=== PATIENT | female | born 1965 | race Caucasian/White ===

== ENCOUNTER 2022-01-21 20:46 | Outpatient (REF) | payer MEDICARE, MEDICAID, SELFPAY ==
[2022-01-23 10:30] LABS: COVID-19 RT-PCR UVMMC Result Negative (Negative)
== END 2022-01-21 20:47 | disposition home or self-care (01) ==
LOC: LBN 20:46
PROVIDERS: Visit Provider Physician Assistant Medical
DX: Z20.822 Contact with and (suspected) exposure to COVID-19 (principal); R09.89 Other specified symptoms and signs involving the circulatory and respiratory systems
CPT/HCPCS: U0003; U0005

== ENCOUNTER 2022-02-11 13:39 | Outpatient (REF) | payer MEDICARE, MEDICAID, SELFPAY | END 2022-02-11 13:40 | disposition home or self-care (01) | LOC: LBN 13:39 | PROVIDERS: Visit Provider Physician Assistant Medical | DX: N89.8 Other specified noninflammatory disorders of vagina (principal); L29.8 Other pruritus | CPT/HCPCS: 87480; 87510; 87660 ==

== ENCOUNTER 2022-10-14 11:41 | Emergency (ER) | payer MEDICARE, MEDICAID, SELFPAY ==
--- NOTE | 2022-10-14 11:30 | RT.EKG_ITS ---
APPROVED REPORT Exam: Resting ECG Reason for Exam: dizzy Patient Location: E HR:71 bpm ECG Measurements Heart Rate [address] 188 P 46 QRSd 99 QRS 5 QT 419 T 61 QTc 454 Conclusion Sinus rhythm...normal P axis, V-rate 60- 99 sinus rhythm, normal axis, normal intervals, non ishcemic
[2022-10-14 11:40] VITALS: BP 170/76; PULSE 77; RESP 12; TEMP 36.5; O2SAT 97
--- NOTE | 2022-10-14 11:45 | DI.CT_ITS ---
Exam(s) CT HEAD WO EXAM: CT HEAD WO CLINICAL HISTORY: syncope. TECHNIQUE: Imaging Protocol: Axial computed tomography images with coronal and sagittal reformatted images were created and reviewed COMPARISON: No exams were available for comparison FINDINGS: There are no skull fractures. There is no fluid in the visualized paranasal sinuses. There is no evidence of intracranial hemorrhage, mass effect, or shift of midline structures. There are no extra-axial fluid collections. The ventricles are not enlarged or shifted and there is no blo od within the ventricular system nor within the basal cisterns. IMPRESSION: No acute intracranial findings on this noninfused CT scan of the brain. RADIATION DOSE DELIVERED: 782.98mGy.cm Total DLP DATA REPOSITORY: All CT scans at this facility are submitted to the National Radiology Data Registry (NRDR) Dose Index Registry (DIR) with the [employer] (ACR). RADIATION OPTIMIZATION: All CT scans at this facility use at least one of these dose optimization te chniques: automated exposure control; mA and/or kV adjustment per patient size (includes targeted exa ms where dose is matched to clinical indication); or iterative reconstruction.
--- NOTE | 2022-10-14 11:45 | DI.RAD_ITS ---
Exam(s) XR CHEST 2V PA LATERAL EXAM: XR CHEST 2V PA LATERAL CLINICAL HISTORY: Syncope, AMS. TECHNIQUE: 2D digital imaging was performed. COMPARISON: CT CT ABDOMEN PELVIS W from 10/14/2022 FINDINGS: 2 views: Heart size is normal. The mediastinum is not widened. Left lung is clear. There is a 1 cm nodular infiltrate in the right upper lobe which requires close follow-up. No pleura l effusions IMPRESSION: 1 cm infiltrate right upper lobe. Close follow-up recommended to rule out malignancy. DATA REPOSITORY: RADIATION DOSE DELIVERED:
--- NOTE | 2022-10-14 11:58 | ED.GENADUL_ITS ---
Discharge Plan Disposition Patient Disposition: Home Condition: Stable Discharge Details Clinical Impression: Syncope, Incidental lung nodule Primary Care Provider: Zara,Local ED Provider: Keshia Lofton Home Meds and New Rx's Prescriptions: No Action gabapentin 300 mg Tablet See Rx Instructions .ROUTE .COMPLEX Rx Instructions: Take 300 mg in AM and HS, 200 mg PO at noon acetaminophen [Tylenol] 325 mg Capsule 650 mg PO TID Discharge Instructions Instructions: Syncope (ED) Additional Instructions: At this time. No evidence for heart problems, no evidence for infection. EKG and troponin are within normal limits. No evidence for urinary tract infection. Head CT is within normal limits. Do have a small hernia, colostomy but no obstruction no signs of infection. You have a small lung nodule noted on the right upper lobe in your lung. Please follow-up with PCP and have a repeat x-ray in approximately 3 to 6 months. Follow up with primary care provider in 3-5 days. Return to ED sooner if any worsening or recurrent syncopal episodes, or concerns. Increase oral fluids. You are placed on a care management list to help establish PCP here in the ED. Medical Decision Making 57-year-old female who presents to the ER via EMS with a chief complaint of syncopal episode. Patient states that she was sitting at the vanity doing her make-up getting ready for work starting her cell phone when she got nauseous and dizzy, she reports syncopal episode and diaphoresis. Work-up ordered including CBC, CMP, serial troponins EKG shows normal sinus rhythm, no STEMI. No old EKG available for review. Liter of normal saline and 4 of Zofran ordered. Urinalysis, UDS ordered. I will add on stool sample for C. difficile due to patient's recent antibiotic use and increased diarrhea and bloating she has been on Augmentin for recent sinus infection. She is also complaining of some abdominal pain right lower quadrant which occurred [address] head chest x-ray and CT abdomen pelvis ordered. Vitals are stable at this time. Differential diagnosis includes not limited to CAD, cardiac event, dehydration, electrolyte imbalance, seizure, vasovagal response, infection this untreated. 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 CBC shows no leukocytosis, largely within normal limits sodium potassium within normal limits, glucose is 108 calcium slightly elevated 10.5, magnesium 1.9 urinalysis is negative for nitrates leukocytes no evidence for UTI, however there is squamous contamination and culture is not indicated at this time. Blood, she does have some calcium oxalate in her crystals in her urine, occult blood for stool is negative. UDS is pending at this time, C. difficile is pending. C. difficile negative, Hemoccult stool negative. Repeat troponin within normal limits. Vital signs are stable. I did discuss the work-up with patient and strict return instructions, patient was placed on care management list for PCP establishment. I did discuss with her to return if any recurrent syncope episodes, did instruct her to have somebody stay with her for the next 12 to 24 hours for observation. She verbalized understanding is remained alert and oriented x4 throughout her entire stay has ambulated to the bathroom without difficulty. CT head abdomen pelvis largely within normal limits there is a fat-containing hernia noted around the colostomy on her left lower quadrant. No obstruction no free air. Please see official report. 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 I did recommend close follow-up with PCP and reimaging in 3 to 6 months. She verbalizes understanding. Patient reports that she is not established through PCP here she usually goes to [facility] [place]. This text was generated using [employer] dictation system, please disregard any oddities of phrase or misspellings. Lab Data Lab results reviewed: Yes I reviewed the patient's lab results. Labs: 10/14/22 13:00 Stool Stool Occult Blood ([facility]) - Final Laboratory Tests Range/Units 10/14/22 10/14/22 10/14/22 12:00 12:00 12:00 WBC (4.4-10.8) 10^3/uL 6.35 RBC (3.93-5.22) 10^6/uL 4.61 Hgb (11.2-15.7) g/dL 13.5 Hct (36.0-46.0) % 40.4 MCV (80-95) fL 88 MCH (27.0-33.0) pg 29.3 MCHC (32.0-36.0) % 33.4 RDW (11.7-14.6) % 12.1 Plt Count (130-400) 10^3/uL 343 MPV (8.0-11.0) fL 8.7 Immature Gran % 0.5 Neutrophils % 51.9 Lymphocytes % 36.5 Monocytes % 6.9 Eosinophils % 2.8 Basophils % 1.4 Nucleated RBC % (0.0-0.3) % 0.0 Absolute Neutrophils (1.2-6.7) 10^3/uL 3.29 Absolute Lymphocytes (1.2-3.4) 10^3/uL 2.32 Absolute Monocytes (0.1-0.8) 10^3/uL 0.44 Absolute Eosinophils (0.0-0.7) 10^3/uL 0.18 Absolute Basophils (0.0-0.2) 10^3/uL 0.09 Sodium (136-145) mmol/L 139 Potassium (3.5-5.1) mmol/L 3.6 Chloride (98-107) mmol/L 104 Carbon Dioxide (21.0-32.0) mmol/L 24.8 Anion Gap (3-11) mmol/L 10.2 BUN (7-18) mg/dL 10 Creatinine (0.55-1.02) mg/dL 0.7 Est GFR (CKD-EPI 2020) (mL/min/1.73m2) 100.19 Glucose (74-106) mg/dL 108 H Calcium (8.5-10.1) mg/dL 10.5 H Magnesium (1.8-2.4) mg/dL 1.9 Total Bilirubin (0.2-1.0) mg/dL 0.5 AST (15-37) U/L 36 ALT (14-59) U/L 55 Alkaline Phosphatase (46-116) U/L 97 Troponin I (<or=60) ng/L < 50 Total Protein (6.4-8.2) g/dL 8.2 Albumin (3.4-5.0) g/dL 4.5 Urine Color (Yellow) Urine Clarity (Clear) Urine pH (5-8) Ur Specific [place] (1.005-1.025) Urine Protein (Negative) mg/dL Urine Ketones (Negative) mg/dL Urine Blood (Negative) Urine Nitrite (Negative) Urine Bilirubin (Negative) Urine Urobilinogen (Up TO 0.2) EU/dL Ur Leukocyte Esterase (Negative) Urine RBC (0-2) HPF Urine WBC (0-5) HPF Ur Epithelial Cells (Negative) HPF Urine Crystals (Negative) HPF Urine Bacteria (Negative) HPF Urine Casts (Negative) LPF Urine Mucus (Negative) Ur Culture Indicated? Urine Glucose (Negative) mg/dL Stl C.difficile Tox PCR (Negative) Urine Opiates Screen (Negative) Urine Methadone Screen (Negative) Ur Barbiturates Screen (Negative) Ur Tricyclics Screen (Negative) Ur Amphetamines Screen (Negative) U Benzodiazepines Scrn (Negative) Urine Cocaine Screen (Negative) Ur THC Screen (Negative) Range/Units 10/14/22 10/14/22 10/14/22 12:32 12:32 13:00 WBC (4.4-10.8) 10^3/uL RBC (3.93-5.22) 10^6/uL Hgb (11.2-15.7) g/dL Hct (36.0-46.0) % MCV (80-95) fL MCH (27.0-33.0) pg MCHC (32.0-36.0) % RDW (11.7-14.6) % Plt Count (130-400) 10^3/uL MPV (8.0-11.0) fL Immature Gran % Neutrophils % Lymphocytes % Monocytes % Eosinophils % Basophils % Nucleated RBC % (0.0-0.3) % Absolute Neutrophils (1.2-6.7) 10^3/uL Absolute Lymphocytes (1.2-3.4) 10^3/uL Absolute Monocytes (0.1-0.8) 10^3/uL Absolute Eosinophils (0.0-0.7) 10^3/uL Absolute Basophils (0.0-0.2) 10^3/uL Sodium (136-145) mmol/L Potassium (3.5-5.1) mmol/L Chloride (98-107) mmol/L Carbon Dioxide (21.0-32.0) mmol/L Anion Gap (3-11) mmol/L BUN (7-18) mg/dL Creatinine (0.55-1.02) mg/dL Est GFR (CKD-EPI 2020) (mL/min/1.73m2) Glucose (74-106) mg/dL Calcium (8.5-10.1) mg/dL Magnesium (1.8-2.4) mg/dL Total Bilirubin (0.2-1.0) mg/dL AST (15-37) U/L ALT (14-59) U/L Alkaline Phosphatase (46-116) U/L Troponin I (<or=60) ng/L Total Protein (6.4-8.2) g/dL Albumin (3.4-5.0) g/dL Urine Color (Yellow) Yellow Urine Clarity (Clear) Sl Cloudy Urine pH (5-8) 5.5 Ur Specific [place] (1.005-1.025) 1.020 Urine Protein (Negative) mg/dL Trace H Urine Ketones (Negative) mg/dL Negative Urine Blood (Negative) Negative Urine Nitrite (Negative) Negative Urine Bilirubin (Negative) Negative Urine Urobilinogen (Up TO 0.2) EU/dL 0.2 Ur Leukocyte Esterase (Negative) Negative Urine RBC (0-2) HPF 0-2 Urine WBC (0-5) HPF 0-2 Ur Epithelial Cells (Negative) HPF Many Urine Crystals (Negative) HPF Mod Calcium Oxalate Urine Bacteria (Negative) HPF Few Urine Casts (Negative) LPF Negative Urine Mucus (Negative) Trace Ur Culture Indicated? No/Sq. Contamination Urine Glucose (Negative) mg/dL Negative Stl C.difficile Tox PCR (Negative) Negative Urine Opiates Screen (Negative) Negative Urine Methadone Screen (Negative) Negative Ur Barbiturates Screen (Negative) Negative Ur Tricyclics Screen (Negative) Negative Ur Amphetamines Screen (Negative) Negative U Benzodiazepines Scrn (Negative) Negative Urine Cocaine Screen (Negative) Negative Ur THC Screen (Negative) Positive A Range/Units 10/14/22 15:02 WBC (4.4-10.8) 10^3/uL RBC (3.93-5.22) 10^6/uL Hgb (11.2-15.7) g/dL Hct (36.0-46.0) % MCV (80-95) fL MCH (27.0-33.0) pg MCHC (32.0-36.0) % RDW (11.7-14.6) % Plt Count (130-400) 10^3/uL MPV (8.0-11.0) fL Immature Gran % Neutrophils % Lymphocytes % Monocytes % Eosinophils % Basophils % Nucleated RBC % (0.0-0.3) % Absolute Neutrophils (1.2-6.7) 10^3/uL Absolute Lymphocytes (1.2-3.4) 10^3/uL Absolute Monocytes (0.1-0.8) 10^3/uL Absolute Eosinophils (0.0-0.7) 10^3/uL Absolute Basophils (0.0-0.2) 10^3/uL Sodium (136-145) mmol/L Potassium (3.5-5.1) mmol/L Chloride (98-107) mmol/L Carbon Dioxide (21.0-32.0) mmol/L Anion Gap (3-11) mmol/L BUN (7-18) mg/dL Creatinine (0.55-1.02) mg/dL Est GFR (CKD-EPI 2020) (mL/min/1.73m2) Glucose (74-106) mg/dL Calcium (8.5-10.1) mg/dL Magnesium (1.8-2.4) mg/dL Total Bilirubin (0.2-1.0) mg/dL AST (15-37) U/L ALT (14-59) U/L Alkaline Phosphatase (46-116) U/L Troponin I (<or=60) ng/L < 50 Total Protein (6.4-8.2) g/dL Albumin (3.4-5.0) g/dL Urine Color (Yellow) Urine Clarity (Clear) Urine pH (5-8) Ur Specific [place] (1.005-1.025) Urine Protein (Negative) mg/dL Urine Ketones (Negative) mg/dL Urine Blood (Negative) Urine Nitrite (Negative) Urine Bilirubin (Negative) Urine Urobilinogen (Up TO 0.2) EU/dL Ur Leukocyte Esterase (Negative) Urine RBC (0-2) HPF Urine WBC (0-5) HPF Ur Epithelial Cells (Negative) HPF Urine Crystals (Negative) HPF Urine Bacteria (Negative) HPF Urine Casts (Negative) LPF Urine Mucus (Negative) Ur Culture Indicated? Urine Glucose (Negative) mg/dL Stl C.difficile Tox PCR (Negative) Urine Opiates Screen (Negative) Urine Methadone Screen (Negative) Ur Barbiturates Screen (Negative) Ur Tricyclics Screen (Negative) Ur Amphetamines Screen (Negative) U Benzodiazepines Scrn (Negative) Urine Cocaine Screen (Negative) Ur THC Screen (Negative) HPI General Mode of arrival: EMS . Date/Time Provider Initiated Documentation: 10/14/22 11:58 . Limitations to Documentation: altered mental status . Information obtained by: patient, EMS and RN notes reviewed . HPI Narrative: 57-year-old female who presents to the ER via EMS with a chief complaint of syncopal episode. Patient states that she was sitting at the vanity doing her make-up getting ready for work starting her cell phone when she got nauseous and dizzy, she reports syncopal episode and diaphoresis. She denies any chest pain she does have ulcerative colitis and has diarrhea daily. She denies any fever or chills. She reports feeling crappy prior to the episode. This is never happened to her before. Past medical history includes ulcerative colitis, anemia, cholecystectomy, she does have colostomy on the left lower quadrant. Related Data Home Medications Medication Instructions Recorded Confirmed acetaminophen 325 mg capsule 650 mg PO TID 10/14/22 10/14/22 (Tylenol) gabapentin 300 mg tablet See Rx Instructions .Route .COMPLEX 10/14/22 10/14/22 Allergies Allergy/AdvReac Type Severity Reaction Status Date / Time ciprofloxacin Allergy Severe Anaphylaxis Unverified 10/14/22 11:49 General Stated Complaint: [id number] DARION: 3 Review of Systems All systems reviewed & are unremarkable except as noted in HPI and below Constitutional Constitutional: Reports as per HPI and Reports headache(s) ENT Ears, Nose, Mouth, and Throat: Reports headache(s) Cardiovascular Cardiovascular: Denies chest pain and Reports syncope Respiratory Respiratory: Denies cough and Denies wheezing Gastrointestinal Gastrointestinal: Reports abdominal pain, Denies bloating, Reports diarrhea, Denies vomiting and Denies hematemesis Genitourinary Genitourinary: Denies difficulty voiding and Denies dysuria Neurologic Neurologic: Reports syncope and Reports headache(s) Allergic/Immunologic Allergic/Immunologic: Denies wheezing PFSH All Active Problems (Updated 10/14/22 @ 14:55 by Keshia Lofton NP) Syncope (Chronic) Incidental lung nodule (Acute) Social History Smoking/Tobacco Use Status: Never Smoking risk assessment performed?: Yes Alcohol Intake: never Drug use: Daily Substance use type: marijuana Do you feel safe at home: Yes Do you feel safe in your relationship?: Yes Exam Narrative Exam Narrative: Constitutional: Alert and oriented x3. Appears stated age. Obese body habitus. Head: Normocephalic, no trauma. Eyes: Pupils PERRL, Red reflex noted, EOM's intact. Eyelids symmetrical without lesions, discharge, or swelling. ENT: Bilateral TM's WNL, External ear normal to inspection, no mastoid TTP, swelling, or erythema, Nasal turbinates WNL, no nasal discharge. Normal dentition, Posterior pharynx WNL, no exudate. Chest: RRR, Normal S1, S2, distal pulses intact. Resp: Lungs clear to auscultation bilaterally, no wheezes, rales, or rhonchi. Abdomen: Soft, non-distended, Normoactive bowel sounds all 4 quads. Tenderness with palpation right lower quadrant, she does have a colostomy bag with brown liquid stool noted on the left lower quadrant. No surrounding induration or swelling. Musculoskeletal: Normal gait, 5/5 strength to all four extremities. Skin: No suspicious rashes or lesions. Capillary refill less than 2 sec. slightly pale Neurologic: Cranial nerves II-XII intact. Alert and oriented x 3. Motor: No deficits noted. Sensory: Intact bilaterally all 4 extremities. Reflexes: DTR's intact bilaterally.. Hematologic/Lymphatic: No ecchymosis, no lymphadenopathy. Course Vital Signs Vital signs: Vital Signs Temperature 36.5 C 10/14/22 11:40 Pulse 77 10/14/22 11:40 Respiratory Rate 12 10/14/22 11:40 Blood Pressure 170/76 H 10/14/22 11:40 Pulse Oximetry 97 10/14/22 11:40 Temperature 36.5 C 10/14/22 11:40 Temperature Source Temporal Artery Scan 10/14/22 11:40 Pulse 77 10/14/22 11:40 Respiratory Rate 12 10/14/22 11:40 Respiratory Effort 10/14/22 11:45 Blood Pressure 170/76 H 10/14/22 11:40 Blood Pressure Position Sitting 10/14/22 11:40 Pulse Oximetry 97 10/14/22 11:40 Oxygen Delivery Method Room Air 10/14/22 11:40 Oxygen Flow Rate 0 10/14/22 11:40 Pain Level 0 10/14/22 11:40
--- NOTE | 2022-10-14 12:15 | DI.CT_ITS ---
Exam(s) CT ABDOMEN PELVIS W EXAM: CT ABDOMEN PELVIS W CLINICAL HISTORY: RLQ abd pain, Hx ulcerative colitis. TECHNIQUE: Imaging Protocol: Axial computed tomography images with coronal and sagittal reformatted images were created and reviewed CONTRAST MATERIAL: Intravenous: Omnipaque-350 100cc Oral: None COMPARISON: No exams were available for comparison FINDINGS: VISUALIZED LUNG BASES: No nodules nor pleural effusions evident. ABDOMEN: There is no ascites. There is an anterior abdominal wall left-sided colostomy site. There is a fat containing hernia at t he colostomy site but no bowel obstruction. No free air. No abscess. LIVER: There are no focal hepatic lesions evident . GALLBLADDER/BILIARY: No gallbladder surgically absent. CBD diameter is prominent, measuring 1.2 cm. Probably related to post cholecystectomy status. There are no radiopaque calculi seen in the lower CBD. No pancreatic head mass evident. PANCREAS: No evidence of pancreatic mass nor dilatation of the pancreatic duct. SPLEEN: Spleen is not enlarged. No obvious intrasplenic lesions. Splenic and portal veins are paten t. ADRENALS: There are no significant adrenal masses. KIDNEYS:No cysts evident. No solid renal masses. No calculi nor hydronephrosis.. ABDOMINAL AORTA: Abdominal aorta is not enlarged. LYMPH NODES:There is no retroperitoneal nor paraaortic adenopathy. ABDOMINAL WALL: Left-sided ostomy with hernia at this level evident. No inguinal hernias. GI: There is no evidence of bowel obstruction, free air, nor abscess. PELVIS: GI: No evidence of appendicitis.No evidence of sigmoid diverticulitis. LYMPH NODES: There is no intrapelvic nor inguinal adenopathy. REPRODUCTIVE: Upper vaginal pessary in place. Uterus appears unremarkable. No abnormal adnexal mass es nor free fluid in the pelvis. URINARY BLADDER: No calculi nor obvious masses evident OSSEOUS: No significant osseous lesions. IMPRESSION: 1. There is a left-sided colostomy with hernia at this level which contains predominantly fat. Herni a sac at this level measures 10 cm craniocaudal by 5 0.8 cm AP by 9 cm wide. 2. No evidence of bowel obstruction, free air, nor abscess. There is no ascites. 3. Vaginal pessary is noted in place. 4. Gallbladder surgically absent. CBD diameter is enlarged but this is probably related to post chol ecystectomy status. There is mild dilatation of intrahepatic ducts in the left hepatic lobe. RADIATION DOSE DELIVERED: 1,382.42mGy.cm Total DLP DATA REPOSITORY: All CT scans at this facility are submitted to the National Radiology Data Registry (NRDR) Dose Index Registry (DIR) with the [employer] (ACR). RADIATION OPTIMIZATION: All CT scans at this facility use at least one of these dose optimization te chniques: automated exposure control; mA and/or kV adjustment per patient size (includes targeted exa ms where dose is matched to clinical indication); or iterative reconstruction.
[2022-10-14 12:21] LABS: Abs Immature Grans 0.03 10^3/uL (0.0-0.06); Absolute Basophil Count 0.09 10^3/uL (0.0-0.2); Absolute Eosinophil Count 0.18 10^3/uL (0.0-0.7); Absolute Lymphocyte Count 2.32 10^3/uL (1.2-3.4); Absolute Monocyte Count 0.44 10^3/uL (0.1-0.8); Absolute Neutrophil Count 3.29 10^3/uL (1.2-6.7); Basophils % 1.4; Eosinophils % 2.8; HCT 40.4 % (36.0-46.0); HGB 13.5 g/dL (11.2-15.7); Immature Grans % 0.5; Lymphocytes % 36.5; MCH 29.3 pg (27.0-33.0); MCHC 33.4 % (32.0-36.0); MCV 88 fL (80-95); MPV 8.7 fL (8.0-11.0); Monocytes % 6.9; Neutrophils % 51.9; Platelet Count 343 10^3/uL (130-400); RBC 4.61 10^6/uL (3.93-5.22); RDW 12.1 % (11.7-14.6); RDW-SD 39.1 fL; WBC 6.35 10^3/uL (4.4-10.8)
[2022-10-14 12:35] LABS: ALT 55 U/L (14-59); AST 36 U/L (15-37); Albumin 4.5 g/dL (3.4-5.0); Alkaline Phosphatase 97 U/L (46-116); Anion Gap 10.2 mmol/L (3-11); BUN 10 mg/dL (7-18); Bilirubin, Total 0.5 mg/dL (0.2-1.0); CO2 24.8 mmol/L (21.0-32.0); CREATININE 0.7 mg/dL (0.55-1.02); Calcium 10.5 mg/dL (8.5-10.1); Chloride 104 mmol/L (98-107); Estimated GFR 100.19 (mL/min/1.73m2); Glucose 108 mg/dL (74-106); Magnesium 1.9 mg/dL (1.8-2.4); Potassium 3.6 mmol/L (3.5-5.1); Sodium 139 mmol/L (136-145); Total Protein 8.2 g/dL (6.4-8.2)
[2022-10-14] MEDS: Ondansetron 4 MG/2 ML VIAL IVP (12:48)
[2022-10-14] MEDS: Normal Saline Flush 10 ML SYR IVP ×2 (12:48→13:37)
[2022-10-14] MEDS: Normal Saline 1,000 ML 1000 ML IV (12:48)
--- NOTE | 2022-10-14 12:50 | NUR.NOTE ---
Nursing Note: test was a faint positive line, I told Keshia, pt is 5 years post menopausal.
[2022-10-14 13:03] LABS: Bilirubin Negative (Negative); Blood Negative (Negative); Clarity Sl Cloudy (Clear); Glucose Negative (Negative); Ketones Negative (Negative); Leukocyte Esterase Negative (Negative); Nitrite Negative (Negative); Urobilinogen 0.2 EU/dL (Up TO 0.2); pH 5.5 (5-8)
[2022-10-14 13:16] LABS: Bacteria Few HPF (Negative); C & S Indicated? No/Sq. Contamination; Casts Negative LPF (Negative); Crystals Mod Calcium Oxalate HPF (Negative); Epithelial Cells Many HPF (Negative); Mucus Trace (Negative); RBC 0-2 HPF (0-2); WBC 0-2 HPF (0-5)
[2022-10-14 13:21] LABS: *AMPHETAMINES SCREEN URINE Negative (Negative); *BARBITURATES SCREEN URINE Negative (Negative); *BENZODIAZEPINES SCREEN URINE Negative (Negative); Cannabinoids THC Positive (Negative); Cocaine Screen,Urine Negative (Negative); METHADONE URINE SCREEN Negative (Negative); OPIATES URINE SCREEN Negative (Negative)
[2022-10-14 13:28] LABS: Tricyclic Antidepressants Negative (Negative)
[2022-10-14] MEDS: Omnipaque 350 MG/ML 500 ML BTL-Imaging package IJ (13:38)
[2022-10-14] MEDS: Normal Saline - Diluent 50 ML VIAL IV (13:39)
[2022-10-14 14:00] LABS: C Diff PCR Negative (Negative)
[2022-10-14 14:18] LABS: Troponin I < 50 ng/L (<or=60)
[2022-10-14 15:30] LABS: Troponin I < 50 ng/L (<or=60)
[2022-10-14 16:15] VITALS: BP 150/48; PULSE 68; TEMP 36.5; O2SAT 96
--- NOTE | 2022-10-14 22:18 | NUR.NOTE ---
Referral to Care Management to establish pcp routinely.Nursing Note:
[2022-10-15 11:15] LABS: Campylobacter PCR Negative (Negative); Salmonella PCR Negative (Negative); Shiga Toxin PCR Negative (Negative); Shigella/Enteroinvasive Ecoli Negative (Negative)
== END 2022-10-14 16:04 | disposition home or self-care (01) ==
PROVIDERS: Emergency Provider Registered Nurse Emergency
DX: R55 Syncope and collapse (principal); R91.1 Solitary pulmonary nodule; R11.0 Nausea; R42 Dizziness and giddiness; R10.31 Right lower quadrant pain; R61 Generalized hyperhidrosis; E83.52 Hypercalcemia; K46.9 Unspecified abdominal hernia without obstruction or gangrene; E66.9 Obesity, unspecified; Z93.3 Colostomy status
CPT/HCPCS: 80053; 80307; 81025; 87493; 87505; 93005; 96361; 96374; 99285; 70450; 71046; 74177; 81003; 81015; 82270; 83735; 84484; 85025; 93010; J2405

== ENCOUNTER 2022-12-13 17:11 | Outpatient (REF) | payer MEDICARE, MEDICAID, SELFPAY | END 2022-12-13 17:12 | disposition home or self-care (01) | LOC: LBN 17:11 | PROVIDERS: Visit Provider Nurse Practitioner Family | DX: R35.0 Frequency of micturition (principal) | CPT/HCPCS: 87086; 87480; 87510; 87660 ==

== ENCOUNTER 2023-02-03 11:33 | Outpatient (CLI) | payer MEDICARE, MEDICAID, SELFPAY ==
--- NOTE | 2023-02-03 11:30 | DI.RAD_ITS ---
Exam(s) XR CERVICAL SPINE COMP 4-5V EXAM: XR CERVICAL SPINE COMP 4-5V CLINICAL HISTORY: NECK PAIN, M54.2, X 1 WK WITH MUSCLE TENSION, NO TRAUMA. TECHNIQUE: 2D digital imaging was performed. COMPARISON: No exams were available for comparison FINDINGS: Six views There is mild reversal of the normal curvature. No evidence of fracture or listhesis nor offset of t he spinal laminar line. There is moderate disc space narrowing at C3-4 and C5-6 levels. Normal disc height at the other levels including C6-7. There are mild degenerative changes in the facet joints. There are Luschka joint osteophytes evident at C5-6 level bilaterally. No cervical ribs. No significant osseous lesions. IMPRESSION: There is degenerative disc disease at C5-6 and C3-4 levels. If clinically indicated follow-up MRI ca n be performed. DATA REPOSITORY: RADIATION DOSE DELIVERED:
== END 2023-02-03 11:53 ==
LOC: DI 11:36
PROVIDERS: Visit Provider Physician Assistant Medical
DX: M50.322 Other cervical disc degeneration at C5-C6 level
CPT/HCPCS: 72050

== ENCOUNTER 2023-06-20 11:55 | Outpatient (REF) | payer MEDICARE, MEDICAID, SELFPAY ==
[2023-06-20 15:27] LABS: Abs Immature Grans 0.01 10^3/uL (0.0-0.06); Absolute Basophil Count 0.09 10^3/uL (0.0-0.2); Absolute Eosinophil Count 0.17 10^3/uL (0.0-0.7); Absolute Lymphocyte Count 3.16 10^3/uL (1.2-3.4); Absolute Monocyte Count 0.41 10^3/uL (0.1-0.8); Basophils % 1.5; Eosinophils % 2.8; HCT 38.3 % (36.0-46.0); Immature Grans % 0.2; Lymphocytes % 52.3; MCH 29.9 pg (27.0-33.0); MCHC 33.9 % (32.0-36.0); MCV 88 fL (80-95); MPV 9.2 fL (8.0-11.0); Monocytes % 6.8; Neutrophils % 36.4; Platelet Count 363 10^3/uL (130-400); RBC 4.35 10^6/uL (3.93-5.22); RDW-SD 41.6 fL; WBC 6.04 10^3/uL (4.4-10.8)
[2023-06-20 16:13] LABS: Iron 57 ug/dL (50-170); Total Iron Binding Capacity 419 ug/dL (250-450); Transferrin Sat 14 % (15-50)
[2023-06-20 16:22] LABS: ALT 59 U/L (14-59); AST 33 U/L (15-37); Albumin 4.1 g/dL (3.4-5.0); Alkaline Phosphatase 75 U/L (46-116); Anion Gap 11.7 mmol/L (3-11); BUN 11 mg/dL (7-18); Bilirubin, Total 0.5 mg/dL (0.2-1.0); CO2 24.3 mmol/L (21.0-32.0); CREATININE 0.7 mg/dL (0.55-1.02); Calcium 10.4 mg/dL (8.5-10.1); Calculated LDL 94 mg/dL (<100); Chloride 102 mmol/L (98-107); Cholesterol 196 mg/dL (<200); Estimated GFR 100.19 (mL/min/1.73m2); Glucose 97 mg/dL (74-106); HDL Cholesterol 55 mg/dL (40-60); Potassium 3.8 mmol/L (3.5-5.1); Sodium 138 mmol/L (136-145); TSH (W/Ref FT4) 0.88 uIU/mL (0.36-3.74); Total Protein 7.3 g/dL (6.4-8.2); Triglyceride 235 mg/dL (<150); Vitamin B12 789 pg/mL (193-986)
== END 2023-06-20 11:56 | disposition home or self-care (01) ==
LOC: NCHCN 11:55
PROVIDERS: PCP Nurse Practitioner Family; Visit Provider Nurse Practitioner Family
DX: D64.9 Anemia, unspecified (principal); I10 Essential (primary) hypertension; R73.03 Prediabetes; F41.8 Other specified anxiety disorders; K51.90 Ulcerative colitis, unspecified, without complications; E78.5 Hyperlipidemia, unspecified; Z86.39 Personal history of other endocrine, nutritional and metabolic disease
CPT/HCPCS: 80053; 80061; 82607; 83540; 83550; 84443; 85025

== ENCOUNTER → 2023-06-30 02:12 | Outpatient (CLI) | payer MEDICARE, MEDICAID, SELFPAY ==
--- NOTE | 2023-06-30 09:57 | DI.RAD_ITS ---
Exam(s) XR CHEST 2V PA LATERAL EXAM: XR CHEST 2V PA LATERAL CLINICAL HISTORY: LUNG NODULE R91.8. TECHNIQUE: 2D digital imaging was performed. COMPARISON: CR XR CHEST 2V PA LATERAL from 10/14/2022 FINDINGS: 2 views: Heart size is normal. The mediastinum is not widened. Left lung is clear. Increased markings in the right upper lobe again noted without significant dolan e from previous. Also increased markings in the right lung base, slightly more so than previous. Th ere are no pleural effusions. IMPRESSION: Persistent right upper lobe findings. Also mildly increased right lung base findings. Recommend fol low-up CT scan of the chest. DATA REPOSITORY: RADIATION DOSE DELIVERED:
== END ==
PROVIDERS: PCP Nurse Practitioner Family; Visit Provider Nurse Practitioner Family
DX: R91.8 Other nonspecific abnormal finding of lung field (principal)
CPT/HCPCS: 71046

== ENCOUNTER 2023-10-24 17:25 | Emergency (ER) | payer MEDICARE, MEDICAID, SELFPAY ==
[2023-10-24] VITALS (10 sets, daily range): BP systolic 164–187; BP diastolic 63–92; PULSE 81–115; RESP 11–20; TEMP 36.6; O2SAT 94–98
--- NOTE | 2023-10-24 17:33 | ED.GENADUL_ITS ---
HPI General Date/Time Provider Initiated Documentation: 10/24/23 17:32 . HPI Narrative: MDM This is an overall well-appearing normothermic and initially tachycardic 58-year-old female with history most consistent with possible syncopal episode last week. Given no postictal phase and no loss of bowel or bladder control nor any prior history of seizure I did not feel that the patient's presentation represented a seizure. She did have a CT scan performed approximately 1 year ago which had no acute abnormalities. I do not feel that she requires an MRI as she has no focal weakness to suggest CVA. No ongoing concerns for convulsions so do not feel that the patient's presentation represents status epilepticus so I do not feel that the patient requires an EEG. No fevers to suggest meningitis I do not feel that she requires an LP. She does not appear volume overloaded to suggest acute CHF. No black nor bloody stools to suggest GI bleed. Will assess an ECG to assess for any dysrhythmias, ischemia and blocks. She is nonalcoholic though she is mildly hypertensive. She denies history of routine tobacco and ingestions so I do not feel that her presentation represents a toxidrome. No pain out of proportion to suggest necrotizing soft tissue infection. Clear equal breath sounds so my suspicion is low for PE as patient is not short of breath. No vomiting to suggest increased risk for esophageal rupture. Given the duration of time since the patient's symptoms began will obtain a single troponin. Anticipate patient will be be appropriate for empiric trial of discharge with outpatient expectant management. 7 PM Troponin negative. Basic metabolic panel with very mild hypokalemia. Mild anion gap. Mild hyperglycemia but normal bicarbonate??not consistent with DKA. No SIDDHARTHA. Normal magnesium. Reassuring TSH. CBC lacks anemia thrombocytopenia and leukocytosis. Will replete her potassium orally. She tolerated p.o. in the emergency department. She had no dysrhythmias on telemetry. No episodes of unresponsiveness nor convulsions. She is on hydrochlorothiazide so advised PCP follow-up to have her electrolytes rechecked this week as certainly transient hypokalemia could have led to QTc prolongation which could have caused her convulsions. Given normal QTc and no dysrhythmias we will proceed with discharge and outpatient PMD follow-up. Chronic conditions affecting the care of the patient: Ulcerative colitis hypertension History obtained from an outside historian: N/A External record review: [facility] [place] EMR [Diagnostic interpretations performed by me: Per my independent interpretation EKG shows: normal sinus rhythm at a rate of 84 with interventricular conduction delay QRS 100 ms. Left axis deviation no signs of LVH based on voltage criteria. No acute injury pattern. No T wave inversions. Compared to prior dated last year T wave flattening in aVL has improved. ]Medications: Oral potassium Social determinants of health affecting disposition: N/A Management discussed with: N/A Treatment/interventions considered: N/A Response to therapies provided: N/A HPI This is a 58-year-old female with a history of ulcerative colitis and hypertension arrived to the emergency department via private vehicle with concerns that she may have had a seizure 3 days ago. Patient describes an episode in which she was sitting in the living room underneath a hot lamp. She was reportedly with a friend. She reportedly reached up to turn the light off and was reportedly shaking and foaming at the lips for approximately 3 minutes. She did not bite her tongue. She was not incontinent. She was not postictal remembers what happened. She no prior history of seizure. She did have a episode of syncope approximately 1 month ago. She did not strike her head. She did have a CT scan performed 1 year ago. She denies history of diabetes. She is in no recent changes in her medications. She is not short of breath and denies chest pain and vomiting. She denies routine tobacco and ethanol but does occasionally smoke marijuana. Exam General: Well-appearing in no acute distress speaking in complete sentences. Head: Normocephalic, atraumatic. Eye:[Pupils equal, round reactive to light.] Extraocular eye movements intact. No conjunctival injection. No scleral icterus. Ear, nose, mouth, throat: Grossly normal inspection. Normal voice, handling secretions normally. No signs of tongue lacerations. Neck: Trachea midline. Cardiovascular: Well-perfused distal extremities. Regular rate and rhythm. No murmurs. Respiratory: Nonlabored respiration. Clear lungs bilaterally Gastrointestinal: Nondistended abdomen. Soft nontender Musculoskeletal: No edema. Moving all 4 extremities spontaneously. Skin: Normal for age and race, grossly normal temperature and turgor. No acute rash. Neurologic: Alert and appropriate, no apparent acute deficits. GCS 15. 5 out of 5 bilateral upper and lower extremity strength. Cranial nerves II through XII intact grossly. Psychiatric: Mood and manner are appropriate. Grooming and personal hygiene are appropriate. Related Data Home Medications Medication Instructions Recorded Confirmed acetaminophen 325 mg capsule 650 mg PO TID 10/14/22 10/14/22 (Tylenol) gabapentin 300 mg tablet See Rx Instructions .Route .COMPLEX 10/14/22 10/14/22 Allergies Allergy/AdvReac Type Severity Reaction Status Date / Time ciprofloxacin Allergy Severe Anaphylaxis Unverified 10/24/23 17:34 General Stated Complaint: GenMedical DARION: 3 Course Vital Signs Vital signs: Vital Signs Temperature 36.6 C 10/24/23 17:27 Pulse 115 H 10/24/23 17:27 Respiratory Rate 18 10/24/23 17:27 Blood Pressure 170/92 H 10/24/23 17:27 Pulse Oximetry 97 10/24/23 17:27 Temperature 36.6 C 10/24/23 17:27 Temperature Source Oral 10/24/23 17:27 Pulse 115 H 10/24/23 17:27 Respiratory Rate 18 10/24/23 17:27 Blood Pressure 170/92 H 10/24/23 17:27 Blood Pressure Position Sitting 10/24/23 17:27 Pulse Oximetry 97 10/24/23 17:27 Oxygen Delivery Method Room Air 10/24/23 17:27 Oxygen Flow Rate 0 10/24/23 17:27 Medical Decision Making Quality:SDOH Health Related Social Needs: No Data to Display PFSH All Active Problems (Updated 10/24/23 @ 19:00 by Sandor Powers MD) Hypokalemia (Acute) Episode of unresponsiveness (Acute) Social History Smoking/Tobacco Use Status: Never Smoking risk assessment performed?: Yes Alcohol Intake: never Drug use: Daily Substance use type: marijuana Do you feel safe at home: Yes Do you feel safe in your relationship?: Yes Discharge Plan Disposition Patient Disposition: Home Discharge Details Clinical Impression: Episode of unresponsiveness, Hypokalemia Primary Care Provider: TERESA JULIAN ED Provider: Sandor Powers Home Meds and New Rx's Prescriptions: Continued gabapentin 300 mg Tablet See Rx Instructions .ROUTE .COMPLEX Rx Instructions: Take 300 mg in AM and HS, 200 mg PO at noon acetaminophen [Tylenol] 325 mg Capsule 650 mg PO TID Discharge Instructions Instructions: Hypokalemia (ED) Additional Instructions: You were seen in the emergency department for your episode of unresponsiveness. Your blood work showed that your potassium level was mildly low for which you received oral repletion. As we discussed, please follow-up with your primary care provider later this week to have your potassium level rechecked. Please return to the emergency department if you develop any difficulty breathing any other episodes of unresponsiveness if you pass out or if you are concerned you may be having another episode of convulsions.
[2023-10-24 18:17] LABS: Abs Immature Grans 0.01 10^3/uL (0.0-0.06); Absolute Eosinophil Count 0.16 10^3/uL (0.0-0.7); Absolute Lymphocyte Count 3.13 10^3/uL (1.2-3.4); Absolute Monocyte Count 0.39 10^3/uL (0.1-0.8); Absolute Neutrophil Count 2.38 10^3/uL (1.2-6.7); Basophils % 1.6; Eosinophils % 2.6; HCT 41.4 % (36.0-46.0); HGB 13.9 g/dL (11.2-15.7); Immature Grans % 0.2; Lymphocytes % 50.7; MCH 28.9 pg (27.0-33.0); MCHC 33.6 % (32.0-36.0); MCV 86 fL (80-95); MPV 8.5 fL (8.0-11.0); Monocytes % 6.3; Neutrophils % 38.6; Platelet Count 361 10^3/uL (130-400); RBC 4.81 10^6/uL (3.93-5.22); RDW 12.4 % (11.7-14.6); RDW-SD 38.9 fL; WBC 6.17 10^3/uL (4.4-10.8)
--- NOTE | 2023-10-24 18:30 | RT.EKG_ITS ---
APPROVED REPORT Exam: Resting ECG Reason for Exam: Syncope Patient Location: E HR:84 bpm ECG Measurements Heart Rate 84 AXIS WA 186 P 69 QRSd 100 QRS -5 QT 376 T 45 QTc 444 Conclusion Sinus rhythm...normal P axis, V-rate 60- 99 Probable left ventricular hypertrophy...multiple LVH criteria ST elevation, consider inferior injury...ST >0.08mV, II III aVF normal sinus rhythm at a rate of 84 with interventricular conduction delay QRS 100 ms. Left axis dev iation no signs of LVH based on voltage criteria. No acute injury pattern. No T wave inversions. C ompared to prior dated last year T wave flattening in aVL has improved.
[2023-10-24 18:45] LABS: Anion Gap 11.2 mmol/L (3-11); BUN 15 mg/dL (7-18); CO2 25.8 mmol/L (21.0-32.0); CREATININE 0.8 mg/dL (0.55-1.02); Calcium 10.9 mg/dL (8.5-10.1); Chloride 101 mmol/L (98-107); Estimated GFR 84.82 (mL/min/1.73m2); Glucose 133 mg/dL (74-106); Potassium 3.1 mmol/L (3.5-5.1); Sodium 138 mmol/L (136-145); TSH (W/Ref FT4) 3.58 uIU/mL (0.36-3.74); Troponin I < 50 ng/L (< or =60)
[2023-10-24] MEDS: Potassium Bicarbonate/Cit AC 25 MEQ TABLET.EFF 50 MEQ PO (19:20)
== END 2023-10-24 19:38 | disposition home or self-care (01) ==
PROVIDERS: Emergency Provider Emergency Medicine; PCP Nurse Practitioner Family
DX: R40.4 Transient alteration of awareness (principal); E87.6 Hypokalemia; I10 Essential (primary) hypertension
CPT/HCPCS: 80048; 93005; 99283; 83735; 84443; 84484; 85025; 93010

== ENCOUNTER 2023-10-27 12:35 | Outpatient (REF) | payer MEDICARE, MEDICAID, SELFPAY ==
[2023-10-27 16:41] LABS: Iron 57 ug/dL (50-170); Total Iron Binding Capacity 407 ug/dL (250-450); Transferrin Sat 14 % (15-50)
[2023-10-27 16:49] LABS: Anion Gap 10.4 mmol/L (3-11); BUN 11 mg/dL (7-18); CO2 25.6 mmol/L (21.0-32.0); CREATININE 0.7 mg/dL (0.55-1.02); Calcium 10.1 mg/dL (8.5-10.1); Chloride 105 mmol/L (98-107); Estimated GFR 99.57 (mL/min/1.73m2); Ferritin 136 ng/mL (8-252); Glucose 93 mg/dL (74-106); Sodium 141 mmol/L (136-145)
== END 2023-10-27 12:36 | disposition home or self-care (01) ==
LOC: NCHCN 12:35
PROVIDERS: PCP Nurse Practitioner Family; Visit Provider Nurse Practitioner Family
DX: D64.9 Anemia, unspecified (principal); E87.6 Hypokalemia; R73.09 Other abnormal glucose; G25.81 Restless legs syndrome
CPT/HCPCS: 80048; 82728; 83036; 83540; 83550

== ENCOUNTER 2023-11-17 09:57 | Outpatient (RCR) | payer MEDICARE, MEDICAID, SELFPAY ==
--- NOTE | 2023-11-17 10:00 | HOLTER_ITS ---
APPROVED REPORT Conclusion This is a 48-hour Holter monitor ordered for PVCs Rhythm throughout was sinus with an average heart rate of 74. Minimum was 58, [id number] A total of 20 isolated PVCs were seen There were 2 atrial premature beats There was no atrial fibrillation, no high-grade AV block, no pauses greater than 3 seconds
== END 2023-11-24 23:59 | disposition home or self-care (01) ==
LOC: CARDOPNVT 09:57
PROVIDERS: PCP Nurse Practitioner Family; Visit Provider Nurse Practitioner Family
DX: I49.3 Ventricular premature depolarization (principal)
CPT/HCPCS: 93227; 93225; 93226

== ENCOUNTER 2024-06-14 11:04 | Emergency (ER) | payer MEDICARE, MEDICAID, SELFPAY ==
[2024-06-14] VITALS (21 sets, daily range): BP systolic 161–189; BP diastolic 46–79; PULSE 60–75; RESP 10–21; TEMP 36.8; O2SAT 94–99
--- NOTE | 2024-06-14 11:00 | RT.EKG_ITS ---
APPROVED REPORT Exam: Resting ECG Reason for Exam: syncope Patient Location: E HR:68 bpm ECG Measurements Heart Rate 68 AXIS SD 163 P 25 QRSd 100 QRS 45 QT 383 T 59 QTc 407 Conclusion Sinus rhythm...normal P axis, V-rate 60- 99
--- NOTE | 2024-06-14 11:11 | W.ED.GENAD ---
Discharge Plan Disposition Patient Disposition: Home Condition: Stable Discharge Details Clinical Impression: Syncope, Left ankle sprain, Blunt head trauma Primary Care Provider: TERESA JULIAN ED Provider: Nazario Anthony Home Meds and New Rx's Prescriptions: Continued atorvastatin 10 mg tablet 10 mg PO DAILY dicyclomine 10 mg capsule 20 mg PO QID PRN cholecalciferol (vitamin D3) 125 mcg (5,000 unit) capsule 125 mcg PO DAILY Estring 2 mg (7.5 mcg /24 hour) ring 1 vag ring vaginal [id number] famotidine 40 mg tablet 40 mg PO DAILY levomefolate calcium 15 mg tablet 15 mg PO DAILY lisinopril 10 mg tablet 10 mg PO DAILY loperamide 2 mg capsule 2 mg PO Q6H PRN mesalamine 1.2 gram tablet,delayed release (DR/EC) 2.4 g PO DAILY metoprolol succinate 50 mg tablet extended release 24 hr 50 mg PO DAILY mirabegron [Myrbetriq] 50 mg tablet extended release 24 hr 50 mg PO DAILY Premarin 0.625 mg/gram cream 0.625 mg vaginal .2x week gabapentin 300 mg Tablet See Rx Instructions .ROUTE .COMPLEX Rx Instructions: Take 300 mg in AM and HS, 200 mg PO at noon acetaminophen [Tylenol] 325 mg Capsule 650 mg PO TID buspirone 5 mg tablet 5 mg PO BID Patient Comments: 10mg QAM & 5mg QPM gabapentin 100 mg capsule 100 mg PO DAILY Patient Comments: TAKE TWO CAPSULES BY MOUTH EVERY DAY AT NOON TAKE 300MG QAM & QPM cetirizine [24Hour Allergy] 10 mg tablet 10 mg PO DAILY PRN citalopram 20 mg tablet 20 mg PO DAILY Discharge Instructions Additional Instructions: Your blood work and imaging today did not show any concerning findings Follow-up with your primary care provider in 1 to 2 weeks If you feel more ill or have new symptoms such as severe chest pain or difficulty breathing return to the emergency department for reevaluation HPI General Mode of arrival: EMS. Date/Time Provider Initiated Documentation: 06/14/24 11:11. Limitations to Documentation: no limitations. Information obtained by: patient. History of Present Illness 58 year old F presents to the emergency department with the chief complaint of syncope, described as moderate, Patient started experiencing this hour(s) (1) and it has been now resolved. No relieving factors improve symptom(s), No exacerbating factors reported . Patient notes other (left ankle, right upper chest pain, headache). Related Data Home Medications ?Medication ?Instructions ?Recorded ?Confirmed acetaminophen 325 mg capsule 650 mg PO TID 10/14/22 06/14/24 (Tylenol) gabapentin 300 mg tablet See Rx Instructions .Route .COMPLEX 10/14/22 06/14/24 atorvastatin 10 mg tablet 10 mg PO DAILY 05/09/24 06/14/24 cholecalciferol (vitamin D3) 125 125 mcg PO DAILY 05/09/24 06/14/24 mcg (5,000 unit) capsule conjugated estrogens 0.625 mg/gram 0.625 mg vaginal .2x week 05/09/24 06/14/24 vaginal cream (Premarin) dicyclomine 10 mg capsule 20 mg PO QID PRN 05/09/24 06/14/24 estradiol 2 mg (7.5 mcg/24 hour) 1 vag ring vaginal [id number] 05/09/24 06/14/24 vaginal ring (Estring) famotidine 40 mg tablet 40 mg PO DAILY 05/09/24 06/14/24 levomefolate calcium 15 mg tablet 15 mg PO DAILY 05/09/24 06/14/24 lisinopril 10 mg tablet 10 mg PO DAILY 05/09/24 06/14/24 loperamide 2 mg capsule 2 mg PO Q6H PRN 05/09/24 06/14/24 mesalamine 1.2 gram tablet,delayed 2.4 g PO DAILY 05/09/24 06/14/24 release metoprolol succinate 50 mg 50 mg PO DAILY 05/09/24 06/14/24 tablet,extended release 24 hr mirabegron 50 mg tablet,extended 50 mg PO DAILY 05/09/24 06/14/24 release 24 hr (Myrbetriq) buspirone 5 mg tablet 5 mg PO BID 06/14/24 06/14/24 cetirizine 10 mg tablet (24Hour 10 mg PO DAILY PRN 06/14/24 06/14/24 Allergy) citalopram 20 mg tablet 20 mg PO DAILY 06/14/24 06/14/24 gabapentin 100 mg capsule 100 mg PO DAILY 06/14/24 06/14/24 Allergies Allergy/AdvReac Type Severity Reaction Status Date / Time ciprofloxacin Allergy Severe Anaphylaxis Unverified 06/14/24 11:17 General DARION: 3 Review of Systems All systems reviewed & are unremarkable except as noted in HPI and below Constitutional Constitutional: Denies chills, Denies fever(s) and Denies weakness Eyes Eyes: Denies loss of vision Cardiovascular Cardiovascular: Reports chest pain (after the fall), Reports syncope and Denies dyspnea Respiratory Respiratory: Denies cough and Denies dyspnea Gastrointestinal Gastrointestinal: Denies abdominal pain, Denies nausea and Denies vomiting Musculoskeletal Musculoskeletal: Denies joint swelling Neurologic Neurologic: Reports syncope, Denies loss of vision and Denies weakness Exam Const General: no acute distress Orientation: alert [facility] Head: no palpable skull fracture Ears: external ears normal General nose exam: external nose normal Mouth: moist mucous membranes Eyes General: appearance normal, both eyes and all related structures Neck Neck: normal visual inspection Resp Effort & Inspection: normal respiratory effort and able to speak in complete sentences Auscultation: clear to auscultation bilaterally Cardio Jugular venous pressure: no JVD Rate: regular rate Heart Sounds: no murmurs Skin General skin exam: no rashes or lesions noted Neuro General: patient alert and patient oriented x3 Extrem General: normal to inspection Psych Mental Status: mental status grossly normal Medical Decision Making 58-year-old female with history of ulcerative colitis with colostomy, fibromyalgia, hypertension who comes in with syncope. She apparently has had several episodes of syncope over the past year or 2. Had a negative Holter monitor and other labs have been negative when seen for this. She says she has been more tired than usual and did not sleep well last night. Apparently she had her buspirone increased recently. She says she was sitting on the toilet urinating when she felt lightheaded and then lost consciousness falling forward and hitting her head. She woke up a few seconds later and called 911. She is complaining of left ankle, right upper chest and frontal headache since the fall. She says prior to that she had no pain. She is alert oriented x 4 on arrival. She has no focal neurological deficits, cranial nerves II through XII are intact. She has a left frontal 2 cm hematoma. She has full range of motion of her eyes with no eye pain. No midline C-spine tenderness. Her left ankle is no deformities and has full range of motion but is tender over the lateral malleolus with intact sensation and pulses. She also has reproducible right upper anterior chest wall tenderness. Suspect this could be micturition syncope but will keep her on telemetry and check a CBC, CMP and troponin given her pain from the fall will obtain x-rays of the left ankle, chest and CT of her head. She has no findings on exam or history to suggest stroke or seizure. CT head negative for acute intracranial pathology, chest x-ray shows no acute findings as scarring in the right upper lobe which he already is aware of evidence regular imaging with her PCP per patient. Her ankle shows no fractures does have soft tissue swelling. Delta troponin negative. She has had no concerning findings on telemetry and was already had a Holter monitor done as an outpatient. Suspect micturition or vasovagal syncope. Will have her follow-up with her PCP and return precautions given Differential Diagnosis Differential Diagnosis: Micturition syncope, vasovagal, anemia, electrolyte abnormality Medical Records Medical records reviewed: Yes I reviewed the patient's medical records. Lab Data Lab results reviewed: Yes I reviewed the patient's lab results. ECG Data Attestation: I personally reviewed and interpreted this ECG (s) as follows: Prior ECG tracings: available for review Interpretation: sinus rate of 68 no stemi Quality:SDOH Health Related Social Needs: No Data to Display [facility] All Active Problems (Updated 06/14/24 @ 13:16 by Nazario Anthony MD) Blunt head trauma (Acute) Left ankle sprain (Acute) Syncope (Chronic) Medical History (Updated 06/14/24 @ 13:16 by Nazario Anthony MD) Colostomy in place Hx of tuberculosis Lung field abnormal Lower urinary tract symptoms Fibromyalgia Chronic lower back pain Pain in thoracic spine Cervical spondylolysis Seronegative rheumatoid arthritis Fistula Ulcerative colitis GERD (gastroesophageal reflux disease) Acute upper respiratory infection Ventricular premature complex Essential hypertension Restless leg syndrome Obstructive sleep apnea PTSD (post-traumatic stress disorder) Generalized anxiety disorder Severe recurrent major depression Anemia Obesity (BMI 30-39.9) Disorder of lipoprotein and lipid metabolism Hyperlipidemia Family History (Updated 05/08/24 @ 10:39 by Dorothy Grewal) Mother Alcohol use disorder Father Alcohol use disorder Social History (Updated 05/08/24 @ 10:51 by Dorothy Grewal) Smoking/Tobacco Use Status: Former Tobacco Use Smoking risk assessment performed?: Yes Alcohol Intake: never Drug use: Daily Substance use type: marijuana Do you feel safe at home: Yes Do you feel safe in your relationship?: Yes
--- NOTE | 2024-06-14 11:15 | DI.RAD_ITS ---
Exam(s) XR ANKLE LT COMPLETE EXAM: XR ANKLE LT COMPLETE CLINICAL HISTORY: fall pain. TECHNIQUE: 2D digital imaging was performed. COMPARISON: No exams were available for comparison FINDINGS: 3 views There is soft tissue swelling lateral aspect of the ankle but no evidence of fracture or widening the ankle mortise. Talar dome unremarkable. There are no degenerative changes in the ankle and subtala r joints. Bone density is age-appropriate. No osseous lesions. IMPRESSION: Lateral soft tissue swelling. No osseous findings in the ankle. DATA REPOSITORY: RADIATION DOSE DELIVERED:
--- NOTE | 2024-06-14 11:15 | DI.RAD_ITS ---
Exam(s) XR CHEST 2V PA LATERAL EXAM: XR CHEST 2V PA LATERAL CLINICAL HISTORY: right upper chest pain. TECHNIQUE: 2D digital imaging was performed. COMPARISON: CR XR CHEST 2V PA LATERAL from 06/30/2023 FINDINGS: 2 views: Heart size is normal. The mediastinum is not widened. Left lung is clear. Increased markings in the right upper lobe are again noted. Appears slightly mo re prominent than 06/30/2023. No pleural effusions. Pneumothorax. No fractures. IMPRESSION: Increased markings right upper lobe appear to have slightly increased from 06/30/2023. Recommend fol low-up CT scan DATA REPOSITORY: RADIATION DOSE DELIVERED:
[2024-06-14 11:35] LABS: Abs Immature Grans 0.02 10^3/uL (0.0-0.06); Absolute Basophil Count 0.09 10^3/uL (0.0-0.2); Absolute Eosinophil Count 0.23 10^3/uL (0.0-0.7); Absolute Monocyte Count 0.49 10^3/uL (0.1-0.8); Basophils % 1.3 %; Eosinophils % 3.3 %; HCT 39.4 % (36.0-46.0); HGB 13.1 g/dL (11.2-15.7); Immature Grans % 0.3 %; Lymphocytes % 41.3 %; MCH 29.4 pg (27.0-33.0); MCHC 33.2 % (32.0-36.0); MCV 88 fL (80-95); MPV 8.7 fL (8.0-11.0); Neutrophils % 46.8 %; Platelet Count 333 10^3/uL (130-400); RBC 4.46 10^6/uL (3.93-5.22); RDW 13.2 % (11.7-14.6); RDW-SD 42.6 fL; WBC 7.03 10^3/uL (4.4-10.8)
--- NOTE | 2024-06-14 11:49 | DI.CT_ITS ---
Exam(s) CT HEAD WO EXAM: CT HEAD WO CLINICAL HISTORY: fall, pain, forehead hematoma. TECHNIQUE: Imaging Protocol: Axial computed tomography images with coronal and sagittal reformatted images were created and reviewed COMPARISON: CT CT HEAD WO from 10/14/2022 FINDINGS: There is soft tissue hematoma left preorbital region. There are no skull fractures. There is no flui d in the visualized paranasal sinuses. There is no evidence of intracranial hemorrhage, mass effect, or shift of midline structures. There are no extra-axial fluid collections. The ventricles are not enlarged or shifted and there is no blo od within the ventricular system nor within the basal cisterns. IMPRESSION: No acute intracranial findings on this noninfused CT scan of the brain. Left periorbital hematoma. No skull fractures Called by myself to ER physician 06/14/2024 12:01 p.m. RADIATION DOSE DELIVERED: 879.07mGy.cm Total DLP DATA REPOSITORY: All CT scans at this facility are submitted to the National Radiology Data Registry (NRDR) Dose Index Registry (DIR) with the [employer] ([employer]). RADIATION OPTIMIZATION: All CT scans at this facility use at least one of these dose optimization te chniques: automated exposure control; mA and/or kV adjustment per patient size (includes targeted exa ms where dose is matched to clinical indication); or iterative reconstruction.
[2024-06-14 12:04] LABS: ALT 43 U/L (14-59); AST 22 U/L (15-37); Alkaline Phosphatase 113 U/L (46-116); Anion Gap 8.9 mmol/L (3-11); BUN 10 mg/dL (7-18); Bilirubin, Total 0.56 mg/dL (0.2-1.0); CO2 25.1 mmol/L (21.0-32.0); CREATININE 0.8 mg/dL (0.55-1.02); Calcium 10.8 mg/dL (8.5-10.1); Chloride 103 mmol/L (98-107); Estimated GFR 84.82 (mL/min/1.73m2); Glucose 138 mg/dL (74-106); Lipase 27 U/L (16-77); Magnesium 1.9 mg/dL (1.8-2.4); Potassium 4.1 mmol/L (3.5-5.1); Sodium 137 mmol/L (136-145); Total Protein 7.8 g/dL (6.4-8.2); Troponin I 4 ng/L (<or=51)
[2024-06-14 12:18] LABS: Procalcitonin < 0.1 ng/mL
[2024-06-14] MEDS: oxyCODONE 5 MG TAB PO (12:52)
[2024-06-14 12:55] LABS: Bilirubin Negative (Negative); Blood Negative (Negative); Clarity Clear (Clear); Glucose Negative (Negative); Ketones Negative (Negative); Leukocyte Esterase Negative (Negative); Nitrite Negative (Negative); Urobilinogen 0.2 mg/dL (Up to 0.2); pH 5.5 (5-8)
[2024-06-14 13:00] LABS: Troponin I 5 ng/L (<or=51)
== END 2024-06-14 14:10 | disposition home or self-care (01) ==
PROVIDERS: Emergency Provider Emergency Medicine; PCP Nurse Practitioner Family
DX: S93.402A Sprain of unspecified ligament of left ankle, initial encounter (principal); S00.83XA Contusion of other part of head, initial encounter; W18.12XA Fall from or off toilet with subsequent striking against object, initial encounter; Y93.E8 Activity, other personal hygiene; Y92.012 Bathroom of single-family (private) house as the place of occurrence of the external cause; Z93.3 Colostomy status
CPT/HCPCS: 80053; 83690; 84145; 93005; 99285; 70450; 71046; 73610; 81003; 83735; 84484; 85025; 93010; 99284

== ENCOUNTER 2024-07-02 10:53 | Outpatient (CLI) | payer MEDICARE, MEDICAID, SELFPAY | END 2024-07-02 10:54 | disposition home or self-care (01) | PROVIDERS: PCP Nurse Practitioner Family; Visit Provider Nurse Practitioner Family | DX: R55 Syncope and collapse (principal) | CPT/HCPCS: 93246 ==

== ENCOUNTER → 2024-07-16 12:47 | Outpatient (BNVA) | payer MEDICARE, MEDICAID, SELFPAY | PROVIDERS: PCP Nurse Practitioner Family; Referring Provider Nurse Practitioner Family; Visit Provider Psychiatry & Neurology Neurology | DX: R40.4 Transient alteration of awareness (principal) | CPT/HCPCS: 99215; G2212 ==

== ENCOUNTER 2024-07-26 07:53 | Outpatient (CLI) | payer MEDICARE, MEDICAID, SELFPAY ==
--- NOTE | 2024-07-26 12:54 | W.CARDEVENT ---
Date of service: 07/26/24 Time of Service: 12:54 Cardiac Event Recorder Referring Provider:: Concetta Laura Indications:: Syncope Cardiac Event Note: This is a cardiac event monitor. Patient was monitored for 13 days and 17 hours Rhythm throughout was sinus with an average heart rate of 65. Minimum was 42, maximum 157 There are rare isolated atrial and ventricular ectopic beats There was no atrial fibrillation, no high-grade AV block, no pauses greater than 3 seconds Isolated symptom correlated with 1 PVC
== END 2024-07-26 07:54 | disposition home or self-care (01) ==
LOC: CARDOPNVT 07:53
PROVIDERS: PCP Nurse Practitioner Family; Referring Provider Nurse Practitioner Family; Visit Provider Internal Medicine Cardiovascular Disease
DX: R55 Syncope and collapse (principal)
CPT/HCPCS: 93248

== ENCOUNTER 2024-11-29 20:27 | Outpatient (REF) | payer MEDICARE, MEDICAID, SELFPAY ==
[2024-11-29 19:33] LABS: Abs Immature Grans 0.01 10^3/uL (0.0-0.06); Absolute Basophil Count 0.07 10^3/uL (0.0-0.2); Absolute Eosinophil Count 0.24 10^3/uL (0.0-0.7); Absolute Lymphocyte Count 3.42 10^3/uL (1.2-3.4); Absolute Monocyte Count 0.42 10^3/uL (0.1-0.8); Absolute Neutrophil Count 3.28 10^3/uL (1.2-6.7); Basophils % 0.9 %; Eosinophils % 3.2 %; HCT 39.1 % (36.0-46.0); Immature Grans % 0.1 %; MCH 29.7 pg (27.0-33.0); MCHC 33.2 % (32.0-36.0); MCV 90 fL (80-95); Monocytes % 5.6 %; Neutrophils % 44.2 %; Platelet Count 386 10^3/uL (130-400); RBC 4.37 10^6/uL (3.93-5.22); RDW 12.8 % (11.7-14.6); RDW-SD 42.5 fL; WBC 7.44 10^3/uL (4.4-10.8)
[2024-11-29 19:38] LABS: Bilirubin Negative (Negative); Blood Negative (Negative); Clarity Clear (Clear); Glucose Negative (Negative); Ketones Negative (Negative); Leukocyte Esterase Negative (Negative); Nitrite Negative (Negative); Urobilinogen 0.2 mg/dL (Up to 0.2)
[2024-11-29 20:45] LABS: ALT 29 U/L (14-59); AST 17 U/L (15-37); Albumin 4.2 g/dL (3.4-5.0); Alkaline Phosphatase 118 U/L (46-116); BUN 15 mg/dL (7-18); Bilirubin, Total 0.3 mg/dL (0.2-1.0); CREATININE 0.7 mg/dL (0.55-1.02); Calcium 11.1 mg/dL (8.5-10.1); Chloride 105 mmol/L (98-107); Estimated GFR 98.95 (mL/min/1.73m2); Ferritin 73 ng/mL (8-252); Glucose 114 mg/dL (74-106); Potassium 3.9 mmol/L (3.5-5.1); Sodium 140 mmol/L (136-145); Total Protein 7.7 g/dL (6.4-8.2); Vitamin B12 672 pg/mL (193-986)
[2024-11-29 20:47] LABS: Iron 43 ug/dL (50-170); Total Iron Binding Capacity 448 ug/dL (250-450); Transferrin Sat 10 % (15-50)
[2024-12-04 13:53] LABS: Bacterial Vaginosis (BV) Positive (Negative); Candida glabrata Negative (Negative); Candida species group Negative (Negative); Trichomonas vaginalis Negative (Negative)
== END 2024-11-29 20:28 | disposition home or self-care (01) ==
LOC: NCHCN 20:27
PROVIDERS: PCP Nurse Practitioner Family; Visit Provider Nurse Practitioner Family
DX: N89.8 Other specified noninflammatory disorders of vagina (principal); R53.83 Other fatigue
CPT/HCPCS: 80053; 81513; 87481; 87661; 81003; 82607; 82728; 83540; 83550; 85025

== ENCOUNTER 2025-02-19 02:57 | Outpatient (CLI) | payer MEDICARE, MEDICAID, SELFPAY ==
--- NOTE | 2025-02-19 10:57 | W.NUTRFU ---
Date of service: 02/19/25 Time of Service: 09:00 Nutrition Note NOTE: Juanita referred to nutrition visit re: pt wants support around foods best for ulcerative colitis and colostomy. Juanita is a 59yo female who currently lives alone and currently does not drive d/t her concerns of seizure activity (states she is epileptic). PMH significant for HLD, obesity, depression and anxiety, PTSD, LUIZA, HTN, GERD, Ulcerative colitis, fibromyalgia, fatigue, prediabetes. She relates leaving a toxic relationship about 3 months ago, which causedcher much stress. She shares she is repulsed by meat and working with her counselor regarding this. She has most of her groceries delivered and shared that due to chronic pain and other limitations, meals need to be quick and easy - has been making casserole dishes a lot and portioning out and freezing to reheat. She is aware that a modest reduction in body fat (especially visceral, pro-inflammatory fat) would help reduce symptoms of many of her conditions and has this as an on-going goal. she reports about a 30lb wt loss over the last year and wants to lose 1-2lbs pre week. She denies liquid kcals - does have some diet soda. She does supplement with vitamin D We spent today reviewing her goals and working with some menu planning resources to help her come up with clear plan for her nutrient balance: suggested menus follow a pattern that is lower in total carbs (especially added sugar and refined grains/starches) and focuses on slow digesting options while increasing fiber as tolerated. Suggested anti-inflammatory fats and might benefit from higher dose fish oil (up to 5g/day of EPA has been shown to help with symptoms of clinical depression) specific breakdown of recommendations: 1800kcals, 120g protein, 170g total carbs, 54 g total fat, goal of 10-22g fiber as tolerated (making tweaks per colostomy output), 22g or less SFA's, and <22g added sugars. We spent the remainder of appt going over sample menus for her to consider and have scheduled another follow up at the end of February for weight check and have Juanita bring in diet recall for review and help troubleshooting. Time Spent in Nutritional Counseling and Treatment: 25 min
== END 2025-02-19 02:58 | disposition home or self-care (01) ==
LOC: DS 02:57
PROVIDERS: PCP Nurse Practitioner Family; Visit Provider Dietitian, Registered
DX: E63.9 Nutritional deficiency, unspecified (principal)
CPT/HCPCS: 00123; 97802

== ENCOUNTER 2025-03-04 12:05 | Emergency (ER) | payer MEDICARE, MEDICAID, SELFPAY ==
[2025-03-04 11:49] VITALS: BP 160/81; PULSE 72; RESP 15; TEMP 36.7; O2SAT 95
--- NOTE | 2025-03-04 12:00 | DI.RAD_ITS ---
Exam(s) XR LUMBAR SPINE COMPLETE EXAM: XR LUMBAR SPINE COMPLETE CLINICAL HISTORY: Low back pain. TECHNIQUE: 2D digital imaging was performed. COMPARISON: No exams were available for comparison FINDINGS: Five views Evidence of fracture, listhesis, nor pars interarticularis defects. There is preservation of disc he ight most levels. There is multilevel anterior osseous lipping which may indicate some degenerative disc disease despite normal disc height. There is no scoliosis nor osseous lesions. There are degen erative changes in the facet joints at L5-S1 level; less so at L4-5 and other levels. The sacroiliac joints appear unremarkable. No osseous lesions. IMPRESSION: As above. DATA REPOSITORY: RADIATION DOSE DELIVERED:
--- NOTE | 2025-03-04 12:08 | W.ED.GENAD ---
Discharge Plan Disposition Patient Disposition: Home Condition: Stable Discharge Details Clinical Impression: Acute myofascial strain of lumbar region Primary Care Provider: TERESA JULIAN ED Provider: Keshia Lofton Home Meds and New Rx's Prescriptions: New cyclobenzaprine 10 mg tablet 10 mg PO TID PRN (Reason: muscle spasm) Qty: 10 0RF Rx Instructions: Take 1 tablet orally up to 3 times daily as needed for muscle spasm. prednisone 50 mg tablet 50 mg PO DAILY 5 Days Qty: 5 0RF Rx Instructions: Take 1 tablet daily for the next 5 days lidocaine 5 % adhesive patch,medicated 1 patch topical DAILY Qty: 15 0RF Rx Instructions: leave on most painful area for up to 12 hrs No Action atorvastatin 10 mg tablet 10 mg PO DAILY dicyclomine 10 mg capsule 20 mg PO QID PRN cholecalciferol (vitamin D3) 125 mcg (5,000 unit) capsule 125 mcg PO DAILY Estring 2 mg (7.5 mcg /24 hour) ring 1 vag ring vaginal [id number] famotidine 40 mg tablet 40 mg PO DAILY levomefolate calcium 15 mg tablet 15 mg PO DAILY lisinopril 10 mg tablet 10 mg PO DAILY loperamide 2 mg capsule 2 mg PO Q6H PRN mesalamine 1.2 gram tablet,delayed release (DR/EC) 2.4 g PO DAILY mirabegron [Myrbetriq] 50 mg tablet extended release 24 hr 50 mg PO DAILY Premarin 0.625 mg/gram cream 0.625 mg vaginal .2x week levetiracetam 1,000 mg tablet 1,000 mg PO Q12H Qty: 180 3RF gabapentin 300 mg Tablet See Rx Instructions .ROUTE .COMPLEX Rx Instructions: Take 300 mg in AM and HS, 200 mg PO at noon acetaminophen [Tylenol] 325 mg Capsule 650 mg PO TID buspirone 5 mg tablet 5 mg PO BID Patient Comments: 10mg QAM & 5mg QPM cetirizine [24Hour Allergy] 10 mg tablet 10 mg PO DAILY PRN citalopram 20 mg tablet 10 mg PO DAILY gabapentin 100 mg capsule 300 mg PO BID Patient Comments: TAKE TWO CAPSULES BY MOUTH EVERY DAY AT NOON TAKE 300MG QAM & QPM Discharge Instructions Instructions: Back Muscle Strain (DC), Low Back Pain ED Additional Instructions: X-rays are within normal limits there is some evidence of some muscle spasm and straightening of your spine. You have some degenerative disease from L4-S1. A prescription for prednisone, Flexeril and lidocaine patches was sent to the pharmacy on file. Please take the prednisone daily for the next 5 days, take the muscle relaxers as needed. And apply lidocaine patches on for 12 hours off for 12 hours. Alternate ice and heat. Try massage. You should feel better in the next 2 to 3 days. No bending or heavy lifting. Follow up with primary care provider in 3-5 days. Return to ED sooner if any worsening or concerns. Please take Tylenol or Ibuprofen with food every 4-6 hours as needed for pain and swelling. Stand Alone Forms: Work Release Referrals: TERESA JULIAN NP [Primary Care Provider] - 5 days Discharge Data Discharge Date/Time-TO BE ENTERED AT DEPARTURE: 03/04/25 14:21 HPI General Mode of arrival: EMS. Date/Time Provider Initiated Documentation: 03/04/25 12:07. Limitations to Documentation: no limitations. Information obtained by: patient, EMS, RN notes reviewed and old records reviewed. HPI Narrative: 59-year-old female presents to the ER with chief complaint of lower back pain and pelvic pain after bending over to put on her shoes this morning. She reports that few days ago she started noticing that her lower back was sore. Exacerbated after the bending over episode. Denies any radiation down her legs, denies any saddle anesthesia. Denies any loss of bowel or bladder control. She did take Tylenol prior to arrival. No history of spine surgeries. She does have a history of ulcerative colitis, high cholesterol, GERD, she does have a colostomy, fibromyalgia, chronic low back pain hypertension PTSD anxiety disorder and obesity. Related Data Home Medications ?Medication ?Instructions ?Recorded ?Confirmed acetaminophen 325 mg capsule 650 mg PO TID 10/14/22 03/04/25 (Tylenol) gabapentin 300 mg tablet See Rx Instructions .Route .COMPLEX 10/14/22 03/04/25 atorvastatin 10 mg tablet 10 mg PO DAILY 05/09/24 03/04/25 cholecalciferol (vitamin D3) 125 125 mcg PO DAILY 05/09/24 03/04/25 mcg (5,000 unit) capsule conjugated estrogens 0.625 mg/gram 0.625 mg vaginal .2x week 05/09/24 03/04/25 vaginal cream (Premarin) dicyclomine 10 mg capsule 20 mg PO QID PRN 05/09/24 03/04/25 estradiol 2 mg (7.5 mcg/24 hour) 1 vag ring vaginal [id number] 05/09/24 03/04/25 vaginal ring (Estring) famotidine 40 mg tablet 40 mg PO DAILY 05/09/24 03/04/25 levomefolate calcium 15 mg tablet 15 mg PO DAILY 05/09/24 03/04/25 lisinopril 10 mg tablet 10 mg PO DAILY 05/09/24 03/04/25 loperamide 2 mg capsule 2 mg PO Q6H PRN 05/09/24 03/04/25 mesalamine 1.2 gram tablet,delayed 2.4 g PO DAILY 05/09/24 03/04/25 release mirabegron 50 mg tablet,extended 50 mg PO DAILY 05/09/24 03/04/25 release 24 hr (Myrbetriq) buspirone 5 mg tablet 5 mg PO BID 06/14/24 03/04/25 cetirizine 10 mg tablet (24Hour 10 mg PO DAILY PRN 06/14/24 03/04/25 Allergy) citalopram 20 mg tablet 10 mg PO DAILY 07/16/24 03/04/25 gabapentin 100 mg capsule 300 mg PO BID 07/16/24 03/04/25 levetiracetam 1,000 mg tablet 1,000 mg PO Q12H #180 tabs 10/11/24 03/04/25 cyclobenzaprine 10 mg tablet 10 mg PO TID PRN muscle spasm #10 03/04/25 tabs lidocaine 5 % topical patch 1 patch topical DAILY #15 ea 03/04/25 prednisone 50 mg tablet 50 mg PO DAILY Inflammation 5 days 03/04/25 #5 tabs Previous Rx's ?Medication ?Instructions ?Recorded levetiracetam 1,000 mg tablet 1,000 mg PO Q12H #180 tabs 10/11/24 cyclobenzaprine 10 mg tablet 10 mg PO TID PRN muscle spasm #10 03/04/25 tabs lidocaine 5 % topical patch 1 patch topical DAILY #15 ea 03/04/25 prednisone 50 mg tablet 50 mg PO DAILY Inflammation 5 days 03/04/25 #5 tabs Allergies Allergy/AdvReac Type Severity Reaction Status Date / Time ciprofloxacin Allergy Severe Anaphylaxis Unverified 03/04/25 11:56 General Stated Complaint: Nk/Back Pain DARION: 4 Review of Systems All systems reviewed & are unremarkable except as noted in HPI and below Genitourinary Genitourinary: Denies urinary incontinence Musculoskeletal Musculoskeletal: Reports as per HPI, Reports back pain, Denies numbness, Denies radiating pain into limb and Reports stiffness Neurologic Neurologic: Denies burning sensations, Denies localized weakness, Denies numbness and Denies paresthesias Exam Narrative Exam Narrative: Constitutional: Alert and oriented x3. Appears stated age. Normal body habitus. Head: Normocephalic, no trauma. Resp: Lungs clear to auscultation bilaterally, no wheezes, rales, or rhonchi. Abdomen: Soft, non-distended, Normoactive bowel sounds all 4 quads. Musculoskeletal: Stiff gait, tenderness with palpation to the L-spine, paraspinous worse than midline no crepitus no step-off. Skin: No suspicious rashes or lesions. Capillary refill less than 2 sec. Neurologic: Cranial nerves II-XII intact. Alert and oriented x 3. Motor: No deficits noted. Sensory: Intact bilaterally all 4 extremities. Hematologic/Lymphatic: No ecchymosis, no lymphadenopathy. Course Vital Signs Vital signs: Vital Signs Temperature 36.7 C 03/04/25 11:49 Pulse 72 03/04/25 11:49 Respiratory Rate 15 03/04/25 11:49 Blood Pressure 160/81 H 03/04/25 11:49 Pulse Oximetry 95 03/04/25 11:49 Temperature 36.7 C 03/04/25 11:49 Pulse 72 03/04/25 11:49 Respiratory Rate 15 03/04/25 11:49 Blood Pressure 160/81 H 03/04/25 11:49 Blood Pressure Position Sitting 03/04/25 11:49 Pulse Oximetry 95 03/04/25 11:49 Oxygen Delivery Method Room Air 03/04/25 11:49 Oxygen Flow Rate 0 03/04/25 11:49 Pain Level 9 03/04/25 11:49 Medical Decision Making 59-year-old female presents to the ER with chief complaint of lower back pain and pelvic pain after bending over to put on her shoes this morning. She reports that few days ago she started noticing that her lower back was sore. Exacerbated after the bending over episode. Denies any radiation down her legs, denies any saddle anesthesia. Denies any loss of bowel or bladder control. She did take Tylenol prior to arrival. No history of spine surgeries. She does have a history of ulcerative colitis, high cholesterol, GERD, she does have a colostomy, fibromyalgia, chronic low back pain hypertension PTSD anxiety disorder and obesity. X-ray of L-spine ordered, urinalysis, lidocaine patch Flexeril and 60 mg prednisone p.o. Do suspect musculoskeletal in origin however differential diagnosis includes not limited to UTI, kidney infection kidney stone X-ray shows no evidence of fracture lithiasis or defects, there is some degenerative joint changes at L5-S1 and L4. Urinalysis not obtained, specimen canceled. Patient given Toradol injection 50 mg IM prior to discharge. Given strict return instructions, follow-up care and prescription for Flexeril prednisone and lidocaine patches. This text was generated using [employer] system, please disregard any oddities of phrase or misspellings. Medical Records Medical records reviewed: Yes I reviewed the patient's medical records. Imaging Data Radiologic Study: Imaging: X-Ray Radiologist's impression: EXAM: XR LUMBAR SPINE COMPLETE CLINICAL HISTORY: Low back pain. TECHNIQUE: 2D digital imaging was performed. COMPARISON: No exams were available for comparison FINDINGS: Five views Evidence of fracture, listhesis, nor pars interarticularis defects. There is preservation of disc height most levels. There is multilevel anterior osseous lipping which may indicate some degenerative disc disease despite normal disc height. There is no scoliosis nor osseous lesions. There are degenerative changes in the facet joints at L5-S1 level; less so at L4-5 and other levels. The sacroiliac joints appear unremarkable. No osseous lesions. IMPRESSION: As above. Quality:SDOH Health Related Social Needs: No Data to Display PFSH All Active Problems (Updated 03/04/25 @ 13:17 by Keshia Lofton NP) Acute myofascial strain of lumbar region (Acute) Transient alteration of awareness (Acute) Medical History Colostomy in place Hx of tuberculosis Lung field abnormal Lower urinary tract symptoms Fibromyalgia Chronic lower back pain Pain in thoracic spine Cervical spondylolysis Seronegative rheumatoid arthritis Fistula Ulcerative colitis GERD (gastroesophageal reflux disease) Ventricular premature complex Essential hypertension Restless leg syndrome Obstructive sleep apnea PTSD (post-traumatic stress disorder) Generalized anxiety disorder Severe recurrent major depression Anemia Obesity (BMI 30-39.9) Hyperlipidemia Surgical History S/P colostomy S/P colon resection S/P bunionectomy S/P cholecystectomy S/P tonsillectomy and adenoidectomy Family History Mother Alcohol use disorder Stroke Heart disease Father Alcohol use disorder Social History Smoking/Tobacco Use Status: Former Tobacco Use Smoking risk assessment performed?: Yes Alcohol Intake: never Drug use: Daily Substance use type: marijuana Household members: significant other Number of Children: 3 current occupation: Disabled; 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
[2025-03-04] MEDS: predniSONE 20 MG TAB 60 MG PO (12:14)
[2025-03-04] MEDS: Cyclobenzaprine 10 MG TAB PO (12:15)
[2025-03-04] MEDS: Lidocaine 5% Patch 1 PATCH TP (12:15)
[2025-03-04] MEDS: Ketorolac 30 MG/ML VIAL IM (13:42)
[2025-03-04 14:02] VITALS: BP 174/58; PULSE 68; RESP 18; O2SAT 97
== END 2025-03-04 14:21 | disposition home or self-care (01) ==
PROVIDERS: Emergency Provider Registered Nurse Emergency; PCP Nurse Practitioner Family
DX: S39.012A Strain of muscle, fascia and tendon of lower back, initial encounter (principal); I10 Essential (primary) hypertension; E78.5 Hyperlipidemia, unspecified; X50.1XXA Overexertion from prolonged static or awkward postures, initial encounter; Y93.E8 Activity, other personal hygiene; Y92.013 Bedroom of single-family (private) house as the place of occurrence of the external cause; Z87.891 Personal history of nicotine dependence
CPT/HCPCS: 96372; 99284; 72110; 81003; J1885; J7512

== ENCOUNTER 2025-08-26 13:02 | Emergency (ER) | payer MEDICARE, MEDICAID, SELFPAY ==
--- NOTE | 2025-08-26 13:00 | DI.RAD_ITS ---
Exam(s) XR ANKLE RT COMPLETE EXAM: XR ANKLE RT COMPLETE CLINICAL HISTORY: Fall, Injury. TECHNIQUE: 2D digital imaging was performed. COMPARISON: CR XR ANKLE LT COMPLETE from 06/14/2024 FINDINGS: 3 views There is an acute transverse fracture of the lateral malleolus, nondisplaced. There is overlying soft tissue swelling. There is no widening the ankle mortise. Talar dome unremarkable. Medial and posterior malleoli appear intact as does the base of the 5th metatarsal. There is dorsal fusion hardware across the 1st tarsometatarsal joint. The most proximal screw of this hardware is discontinuous. IMPRESSION: Acute transverse fracture of lateral malleolus, nondisplaced. Other findings as above. DATA REPOSITORY: RADIATION DOSE DELIVERED:
[2025-08-26 13:03] VITALS: BP 138/96; PULSE 74; RESP 16; O2SAT 98
--- NOTE | 2025-08-26 13:11 | W.ED.GENAD ---
Discharge Plan Disposition Patient Disposition: Home Condition: Stable Discharge Details Clinical Impression: Closed fracture of lateral malleolus of right ankle Primary Care Provider: TERESA JULIAN ED Provider: Keshia Lofton Home Meds and New Rx's Prescriptions: New oxycodone 5 mg tablet 5 mg PO BID PRN (Reason: pain) Qty: 7 0RF Rx Instructions: Please take 1 tablet mouth twice daily as needed for moderate to severe pain. Do not operate heavy machinery or drive while on this medication No Action lisinopril 40 mg tablet 40 mg PO DAILY betamethasone valerate 0.1 % ointment 1 applic topical BID PRN Patient Comments: Pt states not currently needed 08/26/25 clobetasol 0.05 % cream 1 applic topical BID estradiol 0.01 % (0.1 mg/gram) cream 1 g vaginal QWEEK albuterol sulfate [Ventolin HFA] 90 mcg/actuation HFA aerosol inhaler 2 puff inhalation Q6H PRN fluticasone propionate 50 mcg/actuation spray,suspension 2 spray intranasal DAILY Rx Instructions: administer into each nostril buspirone 15 mg tablet 15 mg PO BID Patient Comments: Pt unsure of dose - states she takes medication BID Entyvio Pen 108 mg/0.68 mL pen injector 108 mg subcut Q2W ropinirole 1 mg tablet 1 mg PO DAILY pantoprazole 20 mg tablet,delayed release (DR/EC) 20 mg PO DAILY propranolol 10 mg tablet 10 mg PO ONCE levetiracetam 750 mg tablet 1,500 mg PO BID lamotrigine 100 mg tablet 100 mg PO BID olmesartan 20 mg tablet 20 mg PO DAILY mesalamine 0.375 gram capsule,extended release 24hr 1.5 g PO DAILY vilazodone 20 mg tablet 20 mg PO DAILY Rx Instructions: must administer with a meal/food atorvastatin 10 mg tablet 10 mg PO DAILY dicyclomine 10 mg capsule 20 mg PO QID PRN cholecalciferol (vitamin D3) 125 mcg (5,000 unit) capsule 125 mcg PO DAILY Estring 2 mg (7.5 mcg /24 hour) ring 1 vag ring vaginal [id number] famotidine 40 mg tablet 40 mg PO DAILY levomefolate calcium 15 mg tablet 15 mg PO DAILY lisinopril 10 mg tablet 10 mg PO DAILY loperamide 2 mg capsule 2 mg PO Q6H PRN mesalamine 1.2 gram tablet,delayed release (DR/EC) 2.4 g PO DAILY mirabegron [Myrbetriq] 50 mg tablet extended release 24 hr 50 mg PO DAILY Premarin 0.625 mg/gram cream 0.625 mg vaginal .2x week gabapentin 300 mg Tablet See Rx Instructions .ROUTE .COMPLEX Rx Instructions: Take 300 mg in AM and HS, 200 mg PO at noon acetaminophen [Tylenol] 325 mg Capsule 650 mg PO Q8H PRN lidocaine 5 % adhesive patch,medicated 1 patch topical DAILY Qty: 15 0RF Rx Instructions: leave on most painful area for up to 12 hrs buspirone 5 mg tablet 5 mg PO BID Patient Comments: 10mg QAM & 5mg QPM cetirizine [24Hour Allergy] 10 mg tablet 10 mg PO DAILY PRN citalopram 20 mg tablet 10 mg PO DAILY gabapentin 100 mg capsule 300 mg PO BID Patient Comments: TAKE TWO CAPSULES BY MOUTH EVERY DAY AT NOON TAKE 300MG QAM & QPM Discharge Instructions Instructions: Ankle Fracture ED Additional Instructions: At this time it does appear that you have a broken bone in your ankle called the lateral malleolus. This is nondisplaced. Please try to stay off the ankle as much as possible. When you are sitting or laying down please elevate above the level of your heart. Use the walking boot as much as possible.. Please follow-up with orthopedics they will call you for an appointment. Please take Tylenol or Ibuprofen with food every 4-6 hours as needed for pain and swelling. Please take pain medication as directed only for moderate to severe pain not relieved by Tylenol or ibuprofen. Do not operate heavy machinery or drink alcohol while on this medication. Follow up with Orthopedics/ primary care provider in 3-5 days. Return to ED sooner if any worsening or concerns. Stand Alone Forms: Portal Information Referrals: Solo Birch MD [ [facility] STAFF PHYSICIAN, Orthopaedic Surgical] - 1 week Referral Note: ER follow up HPI General Mode of arrival: EMS. Date/Time Provider Initiated Documentation: 08/26/25 13:06. Limitations to Documentation: no limitations. Information obtained by: patient, RN notes reviewed and old records reviewed. HPI Narrative: 60-year-old female presents to the ER via EMS with a right ankle injury. Patient presents via EMS. She reports that she was walking crisscrossing groceries and stepped into a hole, she fell forward. She does have a superficial abrasion noted to her left anterior abdomen, she is complaining of some right ankle pain inability to bear weight. She denies any head injury or loss of consciousness. She denies any other injuries. She does have a history of low back pain and a colostomy from ulcerative colitis she did take Tylenol this morning. Past medical history includes GERD obstructive sleep, PTSD hyperlipidemia. Related Data Home Medications ?Medication ?Instructions ?Recorded ?Confirmed acetaminophen 325 mg capsule 650 mg PO Q8H PRN 10/14/22 08/26/25 (Tylenol) gabapentin 300 mg tablet See Rx Instructions .Route .COMPLEX 10/14/22 08/26/25 atorvastatin 10 mg tablet 10 mg PO DAILY 05/09/24 08/26/25 cholecalciferol (vitamin D3) 125 125 mcg PO DAILY 05/09/24 08/26/25 mcg (5,000 unit) capsule conjugated estrogens 0.625 mg/gram 0.625 mg vaginal .2x week 05/09/24 08/26/25 vaginal cream (Premarin) dicyclomine 10 mg capsule 20 mg PO QID PRN 05/09/24 08/26/25 estradiol 2 mg (7.5 mcg/24 hour) 1 vag ring vaginal [id number] 05/09/24 08/26/25 vaginal ring (Estring) famotidine 40 mg tablet 40 mg PO DAILY 05/09/24 08/26/25 levomefolate calcium 15 mg tablet 15 mg PO DAILY 05/09/24 08/26/25 lisinopril 10 mg tablet 10 mg PO DAILY 05/09/24 08/26/25 loperamide 2 mg capsule 2 mg PO Q6H PRN 05/09/24 08/26/25 mesalamine 1.2 gram tablet,delayed 2.4 g PO DAILY 05/09/24 08/26/25 release Held on 08/26/25. Instructions: states she no longer takes mirabegron 50 mg tablet,extended 50 mg PO DAILY 05/09/24 08/26/25 release 24 hr (Myrbetriq) buspirone 5 mg tablet 5 mg PO BID 06/14/24 08/26/25 cetirizine 10 mg tablet (24Hour 10 mg PO DAILY PRN 06/14/24 08/26/25 Allergy) citalopram 20 mg tablet 10 mg PO DAILY 07/16/24 08/26/25 gabapentin 100 mg capsule 300 mg PO BID 07/16/24 08/26/25 lidocaine 5 % topical patch 1 patch topical DAILY #15 ea 03/04/25 08/26/25 albuterol sulfate 90 mcg/actuation 2 puff inhalation Q6H PRN 08/14/25 08/26/25 aerosol inhaler (Ventolin HFA) betamethasone valerate 0.1 % 1 applic topical BID PRN 08/14/25 08/26/25 topical ointment buspirone 15 mg tablet 15 mg PO BID 08/14/25 08/26/25 clobetasol 0.05 % topical cream 1 applic topical BID 08/14/25 08/26/25 estradiol 0.01% (0.1 mg/gram) 1 g vaginal QWEEK 08/14/25 08/26/25 vaginal cream fluticasone propionate 50 2 spray intranasal DAILY 08/14/25 08/26/25 mcg/actuation nasal spray,suspension lamotrigine 100 mg tablet 100 mg PO BID 08/14/25 08/26/25 levetiracetam 750 mg tablet 1,500 mg PO BID 08/14/25 08/26/25 lisinopril 40 mg tablet 40 mg PO DAILY 08/14/25 08/26/25 mesalamine 0.375 gram 1.5 g PO DAILY 08/14/25 08/26/25 capsule,extended release 24 hr olmesartan 20 mg tablet 20 mg PO DAILY 08/14/25 08/26/25 pantoprazole 20 mg tablet,delayed 20 mg PO DAILY 08/14/25 08/26/25 release propranolol 10 mg tablet 10 mg PO ONCE 08/14/25 08/26/25 ropinirole 1 mg tablet 1 mg PO DAILY 08/14/25 08/26/25 vedolizumab 108 mg/0.68 mL 108 mg subcut Q2W 08/14/25 08/26/25 subcutaneous pen injector (Daisyio Pen) vilazodone 20 mg tablet 20 mg PO DAILY 08/14/25 08/26/25 oxycodone 5 mg tablet 5 mg PO BID PRN pain #7 tabs 08/26/25 Previous Rx's ?Medication ?Instructions ?Recorded lidocaine 5 % topical patch 1 patch topical DAILY #15 ea 03/04/25 oxycodone 5 mg tablet 5 mg PO BID PRN pain #7 tabs 08/26/25 Allergies Allergy/AdvReac Type Severity Reaction Status Date / Time ciprofloxacin Allergy Severe Anaphylaxis Unverified 08/26/25 13:04 General Stated Complaint: Orthopedic DARION: 4 Review of Systems Musculoskeletal Musculoskeletal: Reports as per HPI, Reports arthralgias and Reports joint swelling Exam Extrem Right lower extremity: ankle Details: tenderness Location: of the lateral malleolus and swelling Left lower extremity: knee Details: abrasion Course Vital Signs Vital signs: Vital Signs Pulse 74 08/26/25 13:03 Respiratory Rate 16 08/26/25 13:03 Blood Pressure 138/96 H 08/26/25 13:03 Pulse Oximetry 98 08/26/25 13:03 Pulse 74 08/26/25 13:03 Respiratory Rate 16 08/26/25 13:03 Blood Pressure 138/96 H 08/26/25 13:03 Blood Pressure Position Sitting 08/26/25 13:03 Pulse Oximetry 98 08/26/25 13:03 Oxygen Delivery Method Room Air 08/26/25 13:03 Oxygen Flow Rate 0 08/26/25 13:03 Pain Level 9 08/26/25 13:03 Medical Decision Making 60-year-old female presents to the ER via EMS with a right ankle injury. Patient presents via EMS. She reports that she was walking crisscrossing groceries and stepped into a hole, she fell forward. She does have a superficial abrasion noted to her left anterior abdomen, she is complaining of some right ankle pain inability to bear weight. She denies any head injury or loss of consciousness. She denies any other injuries. She does have a history of low back pain and a colostomy from ulcerative colitis she did take Tylenol this morning. Past medical history includes GERD obstructive sleep, PTSD hyperlipidemia. X-ray, ice. Patient has an acute transverse fracture of the lateral malleolus which is nondisplaced at this time. She also has some hardware into the base of her fifth metatarsal. Please see official report. After discussion with patient and she does not feel that she can tolerate crutches. She does have an elevator in her house, we did discuss her walker which she is comfortable with and a tall walking boot. I did recommend ideally it would her nonweightbearing however with her lower back pain. Patient states that she may have to put a little bit of weight on the foot which is why she went with the walking boot. Patient follow-up with orthopedics and placed on follow up list. Informed by emergency veterinary technician that patient is not tolerating walker and does not want to try crutches. Will re-assess after some gentle encouraging. Contact name of Dr. Birch is on-call for orthopedics who agrees with the above treatment plan was able to personally viewed the images, weightbearing as tolerated, this is a nonsurgical fracture. This text was generated using [employer] dictation system, please disregard any oddities of phrase or misspellings. Patient finally opted for the walker versus the crutches. Imaging Data Radiologic Study: Imaging: X-Ray Radiologist's impression: EXAM: XR ANKLE RT COMPLETE CLINICAL HISTORY: Fall, Injury. TECHNIQUE: 2D digital imaging was performed. COMPARISON: CR XR ANKLE LT COMPLETE from 06/14/2024 FINDINGS: 3 views There is an acute transverse fracture of the lateral malleolus, nondisplaced. There is overlying soft tissue swelling. There is no widening the ankle mortise. Talar dome unremarkable. Medial and posterior malleoli appear intact as does the base of the 5th metatarsal. There is dorsal fusion hardware across the 1st tarsometatarsal joint. The most proximal screw of this hardware is discontinuous. IMPRESSION: Acute transverse fracture of lateral malleolus, nondisplaced. 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) Obesity (Chronic) Cervical spondylosis (Acute) Iron deficiency anemia (Acute) Stress incontinence (Acute) Overactive bladder (Acute) Transient alteration of awareness (Acute) Medical History Colostomy in place Hx of tuberculosis Lung field abnormal Lower urinary tract symptoms Fibromyalgia Chronic lower back pain Pain in thoracic spine Cervical spondylolysis Seronegative rheumatoid arthritis Fistula Ulcerative colitis GERD (gastroesophageal reflux disease) Ventricular premature complex Essential hypertension Restless leg syndrome Obstructive sleep apnea PTSD (post-traumatic stress disorder) Generalized anxiety disorder Severe recurrent major depression Anemia Obesity (BMI 30-39.9) Hyperlipidemia Surgical History S/P colostomy S/P colon resection S/P bunionectomy S/P cholecystectomy S/P tonsillectomy and adenoidectomy Family History Mother Alcohol use disorder Stroke Heart disease Father Alcohol use disorder Social History Smoking/Tobacco Use Status: Former Tobacco Use Smoking risk assessment performed?: Yes Alcohol Intake: never Drug use: Daily Substance use type: marijuana Household members: significant other Number of Children: 3 current occupation: Disabled; former OPERATIONAL TRAINER and ENT What is your relationship status?: Panel score (0-1 are the most socially isolated patients): 0 Do you feel safe at home: Yes Do you feel safe in your relationship?: Yes
[2025-08-26] MEDS: oxyCODONE 10 MG TAB PO (14:35)
[2025-08-26 14:59] VITALS: BP 151/75; PULSE 74; TEMP 36.7; O2SAT 96
[2025-08-26] MEDS: MORPHine IR 15 MG TAB, 4 TABS/BTL PO (16:13)
--- NOTE | 2025-08-26 16:16 | W.ED.FU ---
Follow Up Plan: I ordered a prepackaged morphine bottle for this patient following a right ankle fracture she was unable to stop at the pharmacy on her way home without CT. She had no opiate prescription in PDMP record.
--- NOTE | 2025-08-29 12:43 | NUR.NOTE ---
Accessed patients chart to print face sheet for [facility] form
== END 2025-08-26 16:14 | disposition home or self-care (01) ==
PROVIDERS: Emergency Provider Registered Nurse Emergency; PCP Nurse Practitioner Family
DX: S82.64XA Nondisplaced fracture of lateral malleolus of right fibula, initial encounter for closed fracture (principal); I10 Essential (primary) hypertension; E78.5 Hyperlipidemia, unspecified; W18.40XA Slipping, tripping and stumbling without falling, unspecified, initial encounter; Y93.01 Activity, walking, marching and hiking; Y92.480 Sidewalk as the place of occurrence of the external cause
CPT/HCPCS: 99283; 73610

== ENCOUNTER → 2025-09-06 08:05 | Outpatient (BNVA) | payer MEDICARE, MEDICAID, SELFPAY | PROVIDERS: PCP Nurse Practitioner Family; Referring Provider Nurse Practitioner Family; Visit Provider Physician Assistant | DX: S82.61XA Displaced fracture of lateral malleolus of right fibula, initial encounter for closed fracture (principal); W18.43XA Slipping, tripping and stumbling without falling due to stepping from one level to another, initial encounter; Y93.01 Activity, walking, marching and hiking | CPT/HCPCS: 99213 ==